=== PATIENT | female | born 1975 | race American Indian/Alaskan Native ===

== ENCOUNTER 2016-12-24 02:27 | Emergency (ER) | payer SELFPAY ==
[2016-12-24 02:37] VITALS: RESP 20
[2016-12-24] MEDS ORDERED: Sodium Chloride 0.9% 1,000 ML IV ONE (02:43)
[2016-12-24] MEDS ORDERED: Sucralfate 1 gm/10 ml Oral Susp UD PO STA (02:44)
[2016-12-24] MEDS ORDERED: Sucralfate 1 gm/10 ml Oral Susp UD ONE (02:54)
[2016-12-24 03:02] LABS: RBC URINE 3 /hpf (0-3); URINE BILIRUBIN NEGATIVE (NEGATIVE); URINE BLOOD NEGATIVE (NEGATIVE); URINE COLOR Yellow (YELLOW); URINE GLUCOSE (UA) NORMAL (Normal); URINE KETONE TRACE mg/dL (NEGATIVE); URINE LEUKOCYTE ESTERASE 1+ Leu/uL (Negative); URINE PROTEIN NEGATIVE (NEGATIVE); URINE UROBILINOGEN NORMAL mg/dL (0.2-1.0); WBC URINE 7 /hpf (0-5)
--- NOTE | 2016-12-24 03:06 | C.PDOC ---
History Of Present Illness 41 year old female presents to the ED with complaints of abdominal pain beginning tonight in the upper quadrants with some episodes of diarrhea. Patient notes similar symptoms previously and denies any dysuria, hematuria, or vomiting. Chief Complaint (Nursing): Abdominal Pain History Per: Patient History/Exam Limitations: no limitations Onset/Duration Of Symptoms: Hrs Current Symptoms Are (Timing): Still Present Location Of Pain/Discomfort: RUQ, Epigastric, LUQ Quality Of Discomfort: "Pain" Associated Symptoms: Diarrhea. denies: Fever, Chills, Nausea, Vomiting, Urinary Symptoms Last Bowel Movement: Today Recent travel outside of the [place]: No Past Medical History Reviewed: Historical Data, Nursing Documentation, Vital Signs Vital Signs: Last Vital Signs Temp 97.7 F 12/24/16 02:34 Pulse 71 12/24/16 02:34 Resp 20 12/24/16 02:34 BP 150/92 H 12/24/16 02:34 Pulse Ox 99 12/24/16 03:06 - Medical History PMH: Fractures (Right Foot) Surgical History: Family History: States: Unknown Family Hx, Diabetes (Mother) - Social History Hx Tobacco Use: Yes Hx Alcohol Use: Yes (Occasional) Hx Substance Use: Yes (Marijuana) - Immunization History Hx Tetanus Toxoid Vaccination: No Hx Influenza Vaccination: No Hx Pneumococcal Vaccination: No Review Of Systems Constitutional: Negative for: Fever, Chills, Sweats Cardiovascular: Negative for: Chest Pain, Palpitations Respiratory: Negative for: Cough, Shortness of Breath Gastrointestinal: Positive for: Abdominal Pain, Diarrhea. Negative for: Nausea , Vomiting Genitourinary: Negative for: Dysuria, Hematuria Physical Exam - Physical Exam Appears: Non-toxic, No Acute Distress Skin: Warm, Dry Head: Atraumatic Oral Mucosa: Moist Neck: Supple Chest: Symmetrical, No Deformity Cardiovascular: Rhythm Regular Respiratory: No Rales, No Rhonchi, No Stridor, No Wheezing Gastrointestinal/Abdominal: Soft, Tenderness (epigastric tenderness), No Distention, No Guarding, No Rebound Extremity: Normal ROM, No Tenderness Neurological/Psych: Oriented x3 ED Course And Treatment - Laboratory Results Result Diagrams: 12/24/16 03:16 12/24/16 03:16 O2 Sat by Pulse Oximetry: 99 (room air ) Disposition Counseled Patient/Family Regarding: Diagnosis - Disposition Referrals: [facility] at [facility] [Outside] Disposition: HOME/ ROUTINE Disposition Time: 04:15 Condition: STABLE Prescriptions: Dicyclomine [Bentyl] 10 mg PO QID #20 cap Famotidine [Pepcid] 20 mg PO BID #20 tab Sucralfate [Carafate] 1 gm PO BID #20 tab Instructions: Gastritis (GEN), Abdominal Pain (ED) - POA Present On Arrival: None - Clinical Impression Clinical Impression: Abdominal pain, Gastritis - Scribe Statement The provider has reviewed the documentation as recorded by the Scribphilipp Leslie All medical record entries made by the Dagoberto were at my direction and personally dictated by me. I have reviewed the chart and agree that the record accurately reflects my personal performance of the history, physical exam, medical decision making, and the department course for this patient. I have also personally directed, reviewed, and agree with the discharge instructions and disposition.
[2016-12-24] MEDS ORDERED: Sodium Chloride 0.9% 1,000 ML ONE (03:25)
[2016-12-24 03:28] LABS: CHLORIDE 106 mmol/L (98-107); SODIUM 142 mmol/L (132-148)
[2016-12-24 03:30] LABS: BILIRUBIN,TOTAL 0.6 mg/dL (0.2-1.3); CARBON DIOXIDE 26 mmol/L (22-30); GFR AFRICAN-AMERICAN > 60
[2016-12-24 03:31] LABS: ALB/GLOB RATIO 1.1 (1.0-2.1); ALKALINE PHOSPHATASE 78 U/L (38-126); ALT/SGPT 16 U/L (9-52); AST/SGOT 28 U/L (14-36); BLOOD UREA NITROGEN 13 mg/dL (7-17); CALCIUM 8.5 mg/dl (8.6-10.4); GLUCOSE,RANDOM 95 mg/dL (65-105); TOTAL PROTEIN 7.1 g/dL (6.3-8.3)
[2016-12-24 03:33] LABS: POTASSIUM 4.2 mmol/L (3.6-5.2)
[2016-12-24 03:47] LABS: BASO # 0.1 K/uL (0.0-0.2); BASO % 1.1 % (0.0-2.0); EOS # 0.3 K/uL (0.0-0.7); EOS % 3.2 % (0.0-4.0); LYMPH # 3.5 K/uL (1.0-4.3); LYMPH % 38.7 % (20.0-40.0); MEAN CORPUSCULAR HEMOGLOBIN 18.4 pg (27.0-31.0); MEAN CORPUSCULAR HGB CONC 29.9 g/dL (33.0-37.0); MEAN PLATELET VOLUME 9.1 fL (7.2-11.7); MONO # 0.6 K/uL (0.0-0.8); MONO % 6.9 % (0.0-10.0); RED CELL DISTRIBUTION WIDTH 19.2 % (11.5-14.5)
[2016-12-24 04:36] VITALS: BP 143/86; PULSE 73; TEMP 98.1; O2SAT 98
[2016-12-24 04:38] LABS: MEAN CELL VOLUME 61.6 fL (81.0-99.0)
== END 2016-12-24 04:36 | disposition home or self-care (01) ==
LOC: C.ER 02:27
DX: K29.70 Gastritis, unspecified, without bleeding (principal)
CPT/HCPCS: 80053; 81001; 83690; 84703; 85025; 87086; 87181; 96374; 99284; J7040

== ENCOUNTER 2017-02-22 23:00 | Emergency (ER) | payer OTHER ==
[2017-02-22 23:21] VITALS: BP 140/85; PULSE 70; RESP 18; TEMP 98.3; O2SAT 99
--- NOTE | 2017-02-22 23:30 | C.PDOC ---
History Of Present Illness Patient c/o right lower toothache for 1 week. She sts she has an appointment with Dentist on 02/25/2017. Patient sts she took Tylenol with Codeine, but pain persists. Time Seen by Provider: 02/22/17 23:27 Chief Complaint (Nursing): Dental Pain History Per: Patient History/Exam Limitations: no limitations Onset/Duration Of Symptoms: Other (1 week) Current Symptoms Are (Timing): Still Present Severity: Severe Pain Scale Rating Of: 8 Quality: Positive for: Aching Past Medical History Reviewed: Historical Data, Nursing Documentation, Vital Signs Vital Signs: Last Vital Signs Temp 98.3 F 02/22/17 23:17 Pulse 70 02/22/17 23:17 Resp 18 02/22/17 23:17 BP 140/85 02/22/17 23:17 Pulse Ox 99 02/22/17 23:55 - Medical History PMH: No Chronic Diseases, Fractures (Right Foot) Denies: HTN Surgical History: Family History: States: Unknown Family Hx, Diabetes (Mother) - Social History Hx Tobacco Use: Yes Hx Alcohol Use: Yes (Occasional) Hx Substance Use: Yes (Marijuana) - Immunization History Hx Tetanus Toxoid Vaccination: No Hx Influenza Vaccination: No Hx Pneumococcal Vaccination: No Review Of Systems Except As Marked, All Systems Reviewed And Found Negative. ENT: Positive for: Other (toothache) Physical Exam - Physical Exam Appears: Well, Non-toxic, No Acute Distress Skin: Normal Color, Warm Head: Atraumatic, Normacephalic Eye(s): bilateral: Normal Inspection Ear(s): Bilateral: Normal Nose: Normal Oral Mucosa: Moist Tongue: Normal Appearing, No Swelling, No Lesions Lips: Normal Appearing, No Swelling, No Lesions Teeth: Other (poor dentition, no dental abscesses) ED Course And Treatment O2 Sat by Pulse Oximetry: 99 Progress Note: Patient was treated with PenVK and Percocet with improvement. Patient was d/c home with Dentist f/u. Disposition - Disposition Referrals: Non [facility] Provider, [Primary Care Provider] - Disposition: HOME/ ROUTINE Disposition Time: 23:54 Condition: GOOD Additional Instructions: Follow up with your PMD and Dentist within 2-3 days. Return to ED if feel worse. Prescriptions: Ibuprofen [Motrin Tab] 600 mg PO Q8 #30 tab Penicillin VK [Penicillin VK Tab] 500 mg PO Q6H #40 tab traMADol [Ultram] 50 mg PO Q6 #30 tab Instructions: Toothache (ED) Forms: [facility] (Maltese), Work Excuse - Clinical Impression Clinical Impression: Toothache
[2017-02-22] MEDS ORDERED: Oxycodone/Acetaminophen 5/325 mg Tab PO STA (23:37)
[2017-02-22] MEDS ORDERED: Oxycodone/Acetaminophen 5/325 mg Tab ONE (23:44)
== END 2017-02-23 00:06 | disposition home or self-care (01) ==
LOC: C.ER 23:00 → SUPCPDRO 23:00 → C.ER 02-23 00:06
DX: K08.89 Other specified disorders of teeth and supporting structures (principal); Z72.0 Tobacco use

== ENCOUNTER 2017-04-21 21:40 | Emergency (ER) | payer OTHER ==
[2017-04-21 21:51] VITALS: BP 145/88; PULSE 76; RESP 20; TEMP 98.4; O2SAT 98
[2017-04-21] MEDS ORDERED: Aluminum Hydroxide/Magnesium Hydroxide Susp (30 mL) ONE (22:30)
[2017-04-21] MEDS ORDERED: Aluminum Hydroxide/Magnesium Hydroxide Susp (30 mL) PO STA (22:39)
--- NOTE | 2017-04-21 22:46 | C.PDOC ---
History Of Present Illness 41 year old female, whose PMHx includes gastritis, presents to the ED for evaluation of epigastric abdominal pain which has been occurring intermittently for the past 2 days. Patient reports experiencing similar episodes of pain for over one year. Patient was evaluated by her PMD for her symptoms and was advised to follow up with a consumer insights intern, but she has yet to do so. Patient denies fever, chills, nausea, vomiting diarrhea, or constipation. Time Seen by Provider: 04/21/17 22:16 Chief Complaint (Nursing): Abdominal Pain History Per: Patient History/Exam Limitations: no limitations Onset/Duration Of Symptoms: Days (2), Intermittent Episodes Current Symptoms Are (Timing): Still Present Location Of Pain/Discomfort: Epigastric Radiation Of Pain To:: None Quality Of Discomfort: "Pain" Associated Symptoms: denies: Fever, Chills, Nausea, Vomiting, Diarrhea Additional History Per: Patient Abnormal Vaginal Bleeding: No Past Medical History Reviewed: Historical Data, Nursing Documentation, Vital Signs Vital Signs: Last Vital Signs Temp 98.4 F 04/21/17 21:47 Pulse 76 04/21/17 21:47 Resp 20 04/21/17 21:47 BP 145/88 04/21/17 21:47 Pulse Ox 98 04/22/17 03:56 - Medical History PMH: Fractures (Right Foot), Gastritis Surgical History: Family History: States: Unknown Family Hx, Diabetes (Mother) - Social History Hx Tobacco Use: Yes Hx Alcohol Use: Yes (Occasional) Hx Substance Use: Yes (Marijuana) - Immunization History Hx Tetanus Toxoid Vaccination: No Hx Influenza Vaccination: No Hx Pneumococcal Vaccination: No Review Of Systems Constitutional: Negative for: Fever, Chills Gastrointestinal: Positive for: Abdominal Pain (epigastric ). Negative for: Nausea, Vomiting, Diarrhea, Constipation Physical Exam - Physical Exam Appears: Non-toxic, Other (patient is sleeping uncomfortably on stretcher) Skin: Normal Color, Warm, Dry Head: Atraumatic, Normacephalic Eye(s): bilateral: Normal Inspection Oral Mucosa: Moist Neck: Supple Chest: Symmetrical, No Deformity, No Tenderness Cardiovascular: Rhythm Regular, No Murmur Respiratory: Normal Breath Sounds, No Rales, No Rhonchi, No Wheezing Gastrointestinal/Abdominal: Soft, Tenderness (mild, epigastric ), No Guarding, No Rebound, Other (obese ) Extremity: Normal ROM, Capillary Refill (less than 2 seconds ) Neurological/Psych: Oriented x3, Normal Speech, Normal Cognition Gait: Steady ED Course And Treatment O2 Sat by Pulse Oximetry: 98 (on RA) Pulse Ox Interpretation: Normal Progress Note: Lidocaine 2% PO, Maalox PO, and Pepcid PO administered. On reassessment, patient is resting comfortably, showing no signs of distress, and reports an improvement in her abdominal pain. Patient is tolerating PO intake and is stable for discharge. Patient is advised to follow up with her PMD and consumer insights intern within 1-2 days for further evaluation. Reassessment Condition: Improved Disposition Counseled Patient/Family Regarding: Diagnosis, Need For Followup, Rx Given - Disposition Disposition: HOME/ ROUTINE Disposition Time: 22:43 Condition: STABLE Additional Instructions: Please follow up with PMD Take meds as directed Avoid greasy/ fried meat foods, spicy food, caffeine, red meat Return to ER if worse Prescriptions: Aluminum Hydroxide/Magnesium H [Maalox 30 ml] 30 ml PO BID #100 ml Famotidine [Pepcid] 20 mg PO DAILY #20 tab Instructions: Gastritis (ED) Forms: [employer] (Portuguese), Work Excuse - Clinical Impression Clinical Impression: Gastritis - PA / [employer] / Resident Statement MD/DO has reviewed & agrees with the documentation as recorded. - Scribe Statement The provider has reviewed the documentation as recorded by the Scribe (Tasha New) All medical record entries made by the Scribe were at my direction and personally dictated by me. I have reviewed the chart and agree that the record accurately reflects my personal performance of the history, physical exam, medical decision making, and the department course for this patient. I have also personally directed, reviewed, and agree with the discharge instructions and disposition.
== END 2017-04-21 22:55 | disposition home or self-care (01) ==
LOC: C.ER 21:40
DX: K29.70 Gastritis, unspecified, without bleeding (principal)

== ENCOUNTER 2017-06-10 01:52 | Emergency (ER) | payer OTHER ==
[2017-06-10 02:10] VITALS: RESP 20; O2SAT 100
[2017-06-10] MEDS ORDERED: Naproxen 550 mg Tab PO STA (02:22)
[2017-06-10] MEDS ORDERED: Naproxen 550 mg Tab PO ONE (02:30)
[2017-06-10 03:04] LABS: RBC URINE 1 /hpf (0-3); URINE BILIRUBIN NEGATIVE (NEGATIVE); URINE BLOOD NEGATIVE (NEGATIVE); URINE COLOR Yellow (YELLOW); URINE GLUCOSE (UA) NORMAL (Normal); URINE KETONE NEGATIVE (NEGATIVE); URINE LEUKOCYTE ESTERASE 3+ Leu/uL (Negative); URINE PROTEIN NEGATIVE (NEGATIVE); URINE UROBILINOGEN NORMAL mg/dL (0.2-1.0); WBC URINE 12 /hpf (0-5)
--- NOTE | 2017-06-10 03:43 | C.PDOC ---
History Of Present Illness 41 year old female, whose PMHx includes chronic back pain and sciatica, presents to the ED for evaluation of right upper back pain which began 3 days ago. Patient reports her pain radiates to her right lower extremity and is exacerbated by movement. She was evaluated at [facility] 3 days ago and was discharged without any prescriptions. Patient took Tramadol at home without significant relief. She denies fever, chills, urinary/bowel incontinence , extremity numbness/weakness, or recent trauma. Time Seen by Provider: 06/10/17 02:12 Chief Complaint (Nursing): Back Pain History Per: Patient History/Exam Limitations: no limitations Onset/Duration Of Symptoms: Days (3) Current Symptoms Are (Timing): Still Present Quality Of Discomfort: "Pain" Previous Symptoms: Back Pain Associated Symptoms: denies: Incontinence, New Weakness, New Numbness Exacerbating Factor(s): Movement Additional History Per: Patient Past Medical History Reviewed: Historical Data, Nursing Documentation, Vital Signs Vital Signs: Last Vital Signs Temp 98.2 F 06/10/17 04:01 Pulse 82 06/10/17 04:01 Resp 20 06/10/17 04:01 BP 132/76 06/10/17 04:01 Pulse Ox 100 06/10/17 04:57 - Medical History PMH: No Chronic Diseases, Fractures (Right Foot), Gastritis Denies: HTN Surgical History: Family History: States: Diabetes (Mother) - Social History Hx Tobacco Use: Yes Hx Alcohol Use: Yes (Occasional) Hx Substance Use: Yes (Marijuana) - Immunization History Hx Tetanus Toxoid Vaccination: No Hx Influenza Vaccination: No Hx Pneumococcal Vaccination: No Review Of Systems Constitutional: Negative for: Fever, Chills Genitourinary: Negative for: Incontinence Musculoskeletal: Positive for: Back Pain (right upper ), Leg Pain (right ) Neurological: Negative for: Weakness, Numbness Physical Exam - Physical Exam Appears: Non-toxic, No Acute Distress, Other (morbidly obese ) Skin: Normal Color, Warm, Dry Eye(s): bilateral: Normal Inspection, PERRL Neck: Supple Chest: Symmetrical, No Deformity, No Tenderness Cardiovascular: Rhythm Regular, No Murmur Respiratory: Normal Breath Sounds, No Rales, No Rhonchi, No Wheezing Gastrointestinal/Abdominal: Soft, No Tenderness, No Guarding, No Rebound Back: CVA Tenderness (right), No Decreased ROM, Straight Leg Raising (positive at 40 degrees), Other (tenderness to right mid-back and right lumbar region ) Extremity: Normal ROM, Capillary Refill (less than 2 seconds ) Neurological/Psych: Oriented x3, Normal Speech, Normal Cognition, Normal Sensation Gait: Steady ED Course And Treatment O2 Sat by Pulse Oximetry: 100 (on RA) Pulse Ox Interpretation: Normal Progress Note: UA ordered and reviewed. Naproxen PO and Valium PO administered. On reassessment, patient is resting comfortably, showing no signs of distress and reports an improvement in her symptoms. Patient is ambulatory in the ED without distress and is stable for discharge. Patient is advised to f/u with her PMD within 1-2 days for further evaluation and/or return to the ED if symptoms persist or worsen. Reassessment Condition: Improved Disposition Counseled Patient/Family Regarding: Diagnosis, Need For Followup, Rx Given - Disposition Disposition: HOME/ ROUTINE Disposition Time: 03:38 Condition: STABLE Additional Instructions: TAke meds as directed Follow up with PMD Return to ER if worse Prescriptions: Cyclobenzaprine [Cyclobenzaprine HCl] 10 mg PO BID #10 tab Naproxen [Naprosyn] 1 tab PO BID PRN #20 tab PRN Reason: Pain Nitrofurantoin Macrocrystals [Macrobid] 1 cap PO BID #14 cap Instructions: Urinary Tract Infection in Women (ED) Forms: [facility] (Brazilian), Work Excuse - Clinical Impression Clinical Impression: UTI (urinary tract infection) - PA / [employer] / Resident Statement MD/DO has reviewed & agrees with the documentation as recorded. - Scribe Statement The provider has reviewed the documentation as recorded by the Scribe (Tasha New) All medical record entries made by the Scribe were at my direction and personally dictated by me. I have reviewed the chart and agree that the record accurately reflects my personal performance of the history, physical exam, medical decision making, and the department course for this patient. I have also personally directed, reviewed, and agree with the discharge instructions and disposition.
[2017-06-10 04:03] VITALS: BP 132/76; PULSE 82; TEMP 98.2
== END 2017-06-10 04:03 | disposition home or self-care (01) ==
LOC: C.ER 01:52
DX: N39.0 Urinary tract infection, site not specified (principal)

== ENCOUNTER 2017-07-20 20:52 | Emergency (ER) | payer OTHER ==
[2017-07-20 21:00] VITALS: BP 157/91; PULSE 73; RESP 18; TEMP 98.2; O2SAT 98
--- NOTE | 2017-07-20 22:35 | C.PDOC ---
History Of Present Illness 41 year old female presents to the ED for evaluation of right arm and right thigh pain which began after she slipped off some stairs at work earlier today. Patient denies head injury, LOC, extremity numbness/weakness. Time Seen by Provider: 07/20/17 21:09 Chief Complaint (Nursing): Upper Extremity Problem/Injury History Per: Patient History/Exam Limitations: no limitations Onset/Duration Of Symptoms: Hrs Current Symptoms Are (Timing): Still Present Quality: "Pain" Additional History Per: Patient Past Medical History Reviewed: Historical Data, Nursing Documentation, Vital Signs Vital Signs: Last Vital Signs Temp 98.2 F 07/20/17 20:59 Pulse 73 07/20/17 20:59 Resp 18 07/20/17 20:59 BP 157/91 H 07/20/17 20:59 Pulse Ox 98 07/21/17 05:02 - Medical History PMH: Fractures (Right Foot), Gastritis Denies: HTN Surgical History: Family History: States: Diabetes (Mother) - Social History Hx Tobacco Use: Yes Hx Alcohol Use: Yes (Occasional) Hx Substance Use: Yes (Marijuana) - Immunization History Hx Tetanus Toxoid Vaccination: No Hx Influenza Vaccination: No Hx Pneumococcal Vaccination: No Review Of Systems Musculoskeletal: Positive for: Arm Pain (right), Other (right thigh pain ) Neurological: Negative for: Weakness, Numbness, Other (head injury, LOC ) Physical Exam - Physical Exam Appears: Non-toxic, No Acute Distress Skin: Normal Color, Warm, Dry, No Ecchymosis Extremity: No Normal ROM (limited in right wrist, secondary to pain ), Tenderness (right wrist and right thigh ), Capillary Refill (less than 2 seconds ), Other (no tenderness to right shoulder, right elbow, and right hip with full ROM. ) Neurological/Psych: Oriented x3, Normal Speech, Normal Cognition Gait: Steady ED Course And Treatment O2 Sat by Pulse Oximetry: 98 (on RA) Pulse Ox Interpretation: Normal Progress Note: Right hand and right wrsit XR ordered and reviewed. Motrin PO administered. On reassessment, patient is resting comfortably, showing no signs of distress and reports an improvement in her symptoms. Patient is stable for discharge and is advised to follow up with PMD within 1-2 days for further evaluation. Disposition Counseled Patient/Family Regarding: Diagnosis, Need For Followup, Rx Given - Disposition Referrals: Diamante Richards MD [Medical Doctor] - Disposition: HOME/ ROUTINE Disposition Time: 22:32 Condition: STABLE Additional Instructions: Apply ICE to area Take meds as directed follow up with pmd Return to ER if worse Prescriptions: Ibuprofen [Motrin] 600 mg PO Q6H #20 tab Instructions: Wrist Injury (ED), Contusion in Adults (ED) Forms: [email or web address] [facility] (Luxembourgish), Work Excuse - Clinical Impression Clinical Impression: Contusion of right thigh, Injury of right lower arm - PA / [employer] / Resident Statement MD/DO has reviewed & agrees with the documentation as recorded. - Scribe Statement The provider has reviewed the documentation as recorded by the Scribe (Tasha eNw) All medical record entries made by the Scribe were at my direction and personally dictated by me. I have reviewed the chart and agree that the record accurately reflects my personal performance of the history, physical exam, medical decision making, and the department course for this patient. I have also personally directed, reviewed, and agree with the discharge instructions and disposition.
--- NOTE | 2017-07-21 09:13 | RAD ---
PROCEDURE: Right Hand Radiographs. HISTORY: pain, fall COMPARISON: None. FINDINGS: BONES: No acute fracture or destructive bony lesion identified. JOINTS: Normal. No osteoarthritic changes. SOFT TISSUES: Normal. OTHER FINDINGS: None. IMPRESSION: Unremarkable right hand radiographs.
--- NOTE | 2017-07-21 09:14 | RAD ---
PROCEDURE: Right Wrist Radiographs. HISTORY: fall, pain COMPARISON: None. FINDINGS: BONES: No acute fracture or destructive bony lesion identified. JOINTS: Normal. No dislocation. SOFT TISSUES: Normal. OTHER FINDINGS: None. IMPRESSION: Unremarkable right wrist radiographs.
== END 2017-07-20 22:56 | disposition home or self-care (01) ==
LOC: C.ER 20:52
DX: S70.11XA Contusion of right thigh, initial encounter (principal); S59.911A Unspecified injury of right forearm, initial encounter; W10.9XXA Fall (on) (from) unspecified stairs and steps, initial encounter; Y99.0 Civilian activity done for income or pay; Z87.891 Personal history of nicotine dependence

== ENCOUNTER 2017-11-02 04:01 | Emergency (ER) | payer OTHER ==
[2017-11-02 04:16] VITALS: RESP 20
--- NOTE | 2017-11-02 04:19 | C.PDOC ---
History Of Present Illness pt presents with increased frequency , dysuria since yesterday. No f/c/n/v. tolerating po. States that her menstruation came in early. Time Seen by Provider: 11/02/17 04:19 Chief Complaint (Nursing): Abdominal Pain History Per: Patient History/Exam Limitations: no limitations Onset/Duration Of Symptoms: Days Current Symptoms Are (Timing): Still Present Context: Other Severity: Moderate Pain Scale Rating Of: 4 Location Of Pain/Discomfort: Suprapubic Radiation Of Pain To:: None Quality Of Discomfort: Burning Associated Symptoms: denies: Fever, Chills Exacerbating Factors: None Alleviating Factors: None Last Bowel Movement: Today Recent travel outside of the [place]: No Additional History Per: Patient Abnormal Vaginal Bleeding: No Past Medical History Reviewed: Historical Data, Nursing Documentation, Vital Signs Vital Signs: Last Vital Signs Temp 98.2 F 11/02/17 04:11 Pulse 83 11/02/17 04:11 Resp 20 11/02/17 04:11 BP 148/89 11/02/17 04:11 Pulse Ox 100 11/02/17 04:19 - Medical History PMH: Fractures (Right Foot), Gastritis, HTN Surgical History: Family History: States: Diabetes (Mother) - Social History Hx Tobacco Use: Yes Hx Alcohol Use: Yes (Occasional) Hx Substance Use: Yes (Marijuana) - Immunization History Hx Tetanus Toxoid Vaccination: No Hx Influenza Vaccination: No Hx Pneumococcal Vaccination: No Review Of Systems Constitutional: Negative for: Fever, Chills Genitourinary: Positive for: Dysuria, Frequency. Negative for: Hematuria Musculoskeletal: Negative for: Back Pain Skin: Negative for: Rash Neurological: Negative for: Weakness Psych: Negative for: Anxiety Physical Exam - Physical Exam Appears: Non-toxic Skin: Warm, Dry Chest: Symmetrical Cardiovascular: Rhythm Regular Respiratory: No Rales, No Rhonchi, No Wheezing Gastrointestinal/Abdominal: Soft, Tenderness (suprapubic) Back: Normal Inspection Extremity: Normal ROM Extremity: Bilateral: Atraumatic Pulses: Left Dorsalis Pedis: Normal, Right Dorsalis Pedis: Normal Neurological/Psych: Oriented x3 Gait: Steady ED Course And Treatment O2 Sat by Pulse Oximetry: 100 Pulse Ox Interpretation: Normal Reevaluation Time: 05:05 Reassessment Condition: Improved Disposition Counseled Patient/Family Regarding: Studies Performed, Diagnosis, Need For Followup, Rx Given - Disposition Referrals: [facility] [Outside] [facility] [Outside] Disposition: HOME/ ROUTINE Disposition Time: 04:19 Condition: FAIR Additional Instructions: Please return if symptoms recur Prescriptions: Nitrofurantoin Macrocrystals [Macrobid] 1 cap PO BID #14 cap Ondansetron ODT [Zofran ODT] 1 odt PO BID PRN #6 odt PRN Reason: Nausea/Vomiting Phenazopyridine [Phenazopyridine HCl] 200 mg PO TID #6 tab Instructions: Urinary Tract Infection, Adult (DC) Forms: [facility] (Yi), Work Excuse - Clinical Impression Clinical Impression: UTI (urinary tract infection)
[2017-11-02 04:53] LABS: SQUAMOUS EPITHIAL 24 /hpf (0-5); URINE BACTERIA RARE (<OCC); URINE BILIRUBIN NEGATIVE (NEGATIVE); URINE BLOOD 3+ (NEGATIVE); URINE CLARITY Hazy (Clear); URINE COLOR Red (YELLOW); URINE GLUCOSE (UA) NORMAL (Normal); URINE LEUKOCYTE ESTERASE 3+ Leu/uL (Negative); URINE PROTEIN 2+ mg/dL (NEGATIVE); URINE UROBILINOGEN NORMAL mg/dL (0.2-1.0)
[2017-11-02 04:55] LABS: HCG,QUALITATIVE URINE NEGATIVE (NEGATIVE)
[2017-11-02 05:17] VITALS: BP 149/89; PULSE 88; TEMP 98; O2SAT 99
== END 2017-11-02 05:17 | disposition home or self-care (01) ==
LOC: C.ER 04:01
DX: N39.0 Urinary tract infection, site not specified (principal)

== ENCOUNTER 2017-11-24 22:33 | Emergency (ER) | payer OTHER ==
[2017-11-24 22:43] VITALS: RESP 18; O2SAT 98
[2017-11-24] MEDS ORDERED: Aspirin 325 mg EC Tablets PO STA (23:07)
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
[2017-11-24 23:47] LABS: BASO # 0.1 K/uL (0.0-0.2); BASO % 0.8 % (0.0-2.0); EOS # 0.2 K/uL (0.0-0.7); EOS % 2.2 % (0.0-4.0); HEMOGLOBIN 9.7 g/dL (11.0-16.0); LYMPH # 3.2 K/uL (1.0-4.3); LYMPH % 35.2 % (20.0-40.0); MEAN CELL VOLUME 60.2 fL (81.0-99.0); MEAN CORPUSCULAR HEMOGLOBIN 18.6 pg (27.0-31.0); MEAN CORPUSCULAR HGB CONC 30.9 g/dL (33.0-37.0); MEAN PLATELET VOLUME 9.3 fL (7.2-11.7); MONO # 0.6 K/uL (0.0-0.8); MONO % 6.4 % (0.0-10.0); NEUT % 55.4 % (50.0-75.0); NRBC % 0.1 % (0.0-2.0); RBC 5.2 Mil/uL (3.80-5.20); RED CELL DISTRIBUTION WIDTH 19.4 % (11.5-14.5)
[2017-11-24] MEDS ORDERED: Aspirin 325 mg EC Tablets PO ONE (23:51)
[2017-11-25 00:02] LABS: ALB/GLOB RATIO 1.2 (1.0-2.1); ALBUMIN 4.2 g/dL (3.5-5.0); ALT/SGPT 20 U/L (9-52); AST/SGOT 20 U/L (14-36); BLOOD UREA NITROGEN 11 mg/dL (7-17); CALCIUM 9.4 mg/dl (8.6-10.4); GFR AFRICAN-AMERICAN > 60; GFR NON-AFRICAN AMERICAN > 60; LIPASE 152 U/L (23-300)
[2017-11-25 00:59] VITALS: BP 151/78; PULSE 70; TEMP 98.7
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
--- NOTE | 2017-11-25 13:57 | CARD ---
APPROVED REPORT EKG Measurement Heart [id number] ID [id number] <Conclusion> Normal sinus rhythm Nonspecific T wave abnormality Abnormal ECG
== END 2017-11-25 00:59 | disposition home or self-care (01) ==
LOC: C.ER 22:33
DX: R07.89 Other chest pain (principal); I10 Essential (primary) hypertension; Z72.0 Tobacco use
CPT/HCPCS: 71046; 80053; 83690; 84484; 85025; 93005; 96374; 99284; C9113

== ENCOUNTER 2018-09-08 05:58 | Emergency (ER) | payer OTHER | END 2018-09-08 09:18 | disposition home or self-care (01) | LOC: C.ER 05:58 ==

== ENCOUNTER 2018-10-06 03:02 | Inpatient (IN) | payer OTHER ==
[2018-10-06 03:02] VITALS: BMI 42.3
[2018-10-06 04:40] LABS: SQUAMOUS EPITHIAL 5 /hpf (0-5); URINE BILIRUBIN 2+ (NEGATIVE); URINE BLOOD NEGATIVE (NEGATIVE); URINE CLARITY Hazy (Clear); URINE COLOR Amber (YELLOW); URINE GLUCOSE (UA) NORMAL (Normal); URINE LEUKOCYTE ESTERASE TRACE Leu/uL (Negative); URINE PROTEIN NEGATIVE (NEGATIVE)
[2018-10-06 05:07] LABS: BASO # 0.1 K/uL (0.0-0.2); BASO % 0.8 % (0.0-2.0); EOS # 0.2 K/uL (0.0-0.7); EOS % 2.4 % (0.0-4.0); HEMOGLOBIN 10.5 g/dL (11.0-16.0); LYMPH # 2.7 K/uL (1.0-4.3); LYMPH % 35.5 % (20.0-40.0); MEAN CELL VOLUME 62.4 fL (81.0-99.0); MEAN CORPUSCULAR HEMOGLOBIN 19.4 pg (27.0-31.0); MEAN PLATELET VOLUME 9.1 fL (7.2-11.7); MONO # 1.3 K/uL (0.0-0.8); MONO % 17.1 % (0.0-10.0); NEUT # 3.4 K/uL (1.8-7.0); NEUT % 44.2 % (50.0-75.0); RBC 5.44 Mil/uL (3.80-5.20); RED CELL DISTRIBUTION WIDTH 19.9 % (11.5-14.5); WHITE BLOOD COUNT 7.7 K/uL (4.8-10.8)
[2018-10-06 05:33] LABS: ALB/GLOB RATIO 1.1 (1.0-2.1); BLOOD UREA NITROGEN 9 mg/dL (7-17); CALCIUM 8.9 mg/dl (8.6-10.4); GFR NON-AFRICAN AMERICAN > 60; LIPASE 198 U/L (23-300)
--- NOTE | 2018-10-06 05:55 | C.PDOC ---
History Of Present Illness 42-year-old female presents to the ED for evaluation of dark urine noted over the past 4 days. Patient also reports periumbilical abdominal pain, which she describes as gas-like. Patient states she normally has two bowel movements per day, but has only been having one bowel movement per day over the past 2-3 days. Patient reports decreased appetite, but states she was able to eat today. Patient denies fever, chills, vomiting. Time Seen by Provider: 10/06/18 03:32 Chief Complaint (Nursing): Abdominal Pain History Per: Patient History/Exam Limitations: no limitations Onset/Duration Of Symptoms: Days (4) Current Symptoms Are (Timing): Still Present Location Of Pain/Discomfort: Periumbilical Radiation Of Pain To:: None Quality Of Discomfort: "Pain", Gas Associated Symptoms: Urinary Symptoms (dark urine ). denies: Fever, Chills, Vomiting Additional History Per: Patient Past Medical History Reviewed: Historical Data, Nursing Documentation, Vital Signs Vital Signs: Last Vital Signs Temp 98.2 F 10/06/18 03:21 Pulse 69 10/06/18 03:21 Resp 20 10/06/18 03:21 BP Pulse Ox 98 10/06/18 03:21 - Medical History PMH: Fractures (Right Foot), Gastritis, HTN Denies: Chronic Kidney Disease Surgical History: Family History: States: Diabetes (Mother) - Social History Hx Tobacco Use: Yes Hx Alcohol Use: Yes (Occasional) Hx Substance Use: Yes (Marijuana) - Immunization History Hx Tetanus Toxoid Vaccination: No Hx Influenza Vaccination: No Hx Pneumococcal Vaccination: No Review Of Systems Constitutional: Negative for: Fever, Chills, Weakness Cardiovascular: Negative for: Chest Pain, Palpitations Respiratory: Negative for: Cough, Shortness of Breath Gastrointestinal: Positive for: Abdominal Pain (periumbilical ). Negative for: Nausea, Vomiting, Diarrhea Genitourinary: Negative for: Dysuria, Hematuria Musculoskeletal: Positive for: Other (dark urine ). Negative for: Back Pain Skin: Negative for: Rash Neurological: Negative for: Weakness, Numbness, Dizziness Physical Exam - Physical Exam Appears: Well, Non-toxic, No Acute Distress Skin: Warm, Pale Head: Atraumatic, Normacephalic Eye(s): bilateral: PERRL, EOMI, Scleral Icterus Oral Mucosa: Moist Throat: Normal (no swelling or injection ), No Exudate, Other (airway patent ) Neck: Supple Chest: Symmetrical Respiratory: No Accessory Muscle Use, Other (normal inspiratory effoty ) Gastrointestinal/Abdominal: Soft, Tenderness (periumbilical ), No Guarding, No Rebound Back: No CVA Tenderness, Other (ambulatory with steady upright gait ) Extremity: Normal ROM Extremity: Bilateral: Atraumatic Neurological/Psych: Oriented x3, Normal Cranial Nerves (grossly intact ) ED Course And Treatment - Laboratory Results Result Diagrams: 10/06/18 05:03 10/06/18 05:03 Lab Results: Total Bilirubin 5.1 mg/dL (0.2-1.3) H 10/06/18 05:03 Alkaline Phosphatase 201 U/L (38-126) H D 10/06/18 05:03 Total Protein 7.7 g/dL (6.3-8.3) 10/06/18 05:03 Albumin 4.0 g/dL (3.5-5.0) 10/06/18 05:03 Globulin 3.7 gm/dL (2.2-3.9) 10/06/18 05:03 Albumin/Globulin Ratio 1.1 (1.0-2.1) 10/06/18 05:03 Lipase 198 U/L (23-300) 10/06/18 05:03 Urine Color Jessica (YELLOW) 10/06/18 04:27 Urine Clarity Hazy (Clear) 10/06/18 04:27 Urine pH 5.0 (5.0-8.0) 10/06/18 04:27 Ur Specific [place] 1.021 (1.003-1.030) 10/06/18 04:27 Urine Protein Negative mg/dL (NEGATIVE) 10/06/18 04:27 Urine Glucose (UA) Normal mg/dL (Normal) 10/06/18 04:27 Urine Ketones Negative mg/dL (NEGATIVE) 10/06/18 04:27 Urine Blood Negative (NEGATIVE) 10/06/18 04:27 Urine Nitrate Negative (NEGATIVE) 10/06/18 04:27 Urine Bilirubin 2+ (NEGATIVE) H 10/06/18 04:27 Urine Urobilinogen 4.0 mg/dL (0.2-1.0) H 10/06/18 04:27 Ur Leukocyte Esterase Trace Dimitrios/uL (Negative) 10/06/18 04:27 Urine WBC (Auto) 10 /hpf (0-5) H 10/06/18 04:27 Urine RBC (Auto) 4 /hpf (0-3) H 10/06/18 04:27 Ur Squamous Epith Cells 5 /hpf (0-5) 10/06/18 04:27 O2 Sat by Pulse Oximetry: 98 (on RA ) Pulse Ox Interpretation: Normal Medical Decision Making Medical Decision Making: Progress: Patient is declining all bloodwork, stating she only wants her urine to be checked. Urinalysis ordered and reviewed. Abdomen XR ordered. Urinalysis results show remarkable bilirubin. Patient advised to undergo bloodwork and agreed to the test. Bloodwork ordered and reviewed, results show elevated liver enzymes. 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 - Scribe Statement The provider has reviewed the documentation as recorded by the Scribe (Tasha New) All medical record entries made by the Scribe were at my direction and personally dictated by me. I have reviewed the chart and agree that the record accurately reflects my personal performance of the history, physical exam, medical decision making, and the department course for this patient. I have also personally directed, reviewed, and agree with the discharge instructions and disposition. Physician Patient Turnover Patient Signed Over To: Jessica Kinney (pending US results)
[2018-10-06 06:23] LABS: ALT/SGPT 1328 U/L (9-52); AST/SGOT 1333 U/L (14-36)
--- NOTE | 2018-10-06 07:50 | US ---
Date of service: 10/06/2018 HISTORY: gall bladder disease COMPARISON: 04/12/2015 TECHNIQUE: Sonographic evaluation of the right upper quadrant of the abdomen. FINDINGS: LIVER: Measures 17.4 cm in length. Normal echogenicity of the liver parenchyma. No mass. No intrahepatic bile duct dilatation. GALLBLADDER: Gallbladder is contracted pre occluding gallbladder wall thickening true status. For this exam gallbladder wall thickness is 4 mm. No stones seen. COMMON BILE DUCT: Measures 3.7 mm. No stones. No dilatation. PANCREAS: Unremarkable as visualized. No mass. No ductal dilatation. RIGHT KIDNEY: Measures 11.9 x 4.6 x 5.3 cm in length. Normal echogenicity. No calculus, mass, or hydronephrosis. AORTA: No aneurysmal dilatation. IVC: Unremarkable. OTHER FINDINGS: None . IMPRESSION: Limited exam regarding gallbladder wall thickness as gallbladder is contracted. No gallstones seen. No positive ultrasound Coreas sign elicited. No pericholecystic fluid. Otherwise unremarkable exam
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
[2018-10-06 08:50] LABS: HEPATITIS A IGM NEGATIVE (NEGATIVE)
[2018-10-06 09:02] LABS: HEPATITIS C ANTIBODY NEGATIVE (NEGATIVE)
[2018-10-06 10:42] LABS: HEPATITIS B SURFACE AG Reactive (NEGATIVE)
[2018-10-06 10:43] LABS: HEPATITIS B CORE AB REACTIVE (NEGATIVE)
--- NOTE | 2018-10-06 11:45 | CP.PCM.CON ---
<MalakristentobiPeter - Last Filed: 10/06/18 17:14> History of Present Illness - History of Present Illness History of Present Illness: GI Fellow PGY4, consult note. Rylee Mcclain is a 42F presenting with abdominal discomfort, dark urine and yellow eyes. Patient has been having these symptoms for 1-2 weeks. The abdominal pain is RUQ, mild-moderate, dull to sharp and constant. The urine is dark yellow to orange. She has tried to drink more liquids, but it is not helping. She denies taking tylenol/NSAID, any liver disease history, excessive alcohol intake, new medications Rx or OTC. She does admit to having a new sexual encounter 3-4 weeks ago. She states she used protection with condoms. She has several tattoos, the last one was more than 6 months ago and states she always uses clean needles. She denies any IV drug use. ED workup showed severely high liver enzymes ~1300. One month prior she was here for chest pain, and her liver tests were normal. Hepatitis panel was ordered and showed acute hepatitis B. She also has chronic anemia. She denies heavy menses, blood in stool and she does not take iron. She admits to constantly chewing ice or pica. She denies being told if she had thalassemia. PMHx - none PSHx - FMHx - denies GI related cancers or hepatitis SocHx - Current 1/2 PPD smoke since teenager. Occasional alcohol user. Denies IV drugs. 12pt ROS completed and negative except for above. Past Patient History - Infectious Disease Hx of Infectious Diseases: None - Past Social History Smoking Status: Heavy Smoker > 10 Cigarettes Daily - CARDIAC Hx Hypertension: Yes - PULMONARY Hx Respiratory Disorders: No - NEUROLOGICAL Hx Neurological Disorder: No - HEENT Hx HEENT Problems: No - RENAL Hx Chronic Kidney Disease: No - ENDOCRINE/METABOLIC Hx Endocrine Disorders: No - HEMATOLOGICAL/ONCOLOGICAL Hx Blood Disorders: No - INTEGUMENTARY Hx Dermatological Problems: No - MUSCULOSKELETAL/RHEUMATOLOGICAL Hx Fractures: Yes (Right Foot) - GASTROINTESTINAL Hx Gastritis: Yes - GENITOURINARY/GYNECOLOGICAL Hx Genitourinary Disorders: No - PSYCHIATRIC Hx Substance Use: Yes (Marijuana) - SURGICAL HISTORY Hx Surgeries: Yes Hx Section: Yes - ANESTHESIA Hx Anesthesia: Yes Hx Anesthesia Reactions: No Meds Allergies/Adverse Reactions: Allergies Allergy/AdvReac Type Severity Reaction Status Date / Time No Known Allergies Allergy Verified 10/06/18 03:26 Physical Exam - Constitutional Appears: Non-toxic, No Acute Distress - Head Exam Head Exam: ATRAUMATIC, NORMAL INSPECTION - Eye Exam Eye Exam: EOMI, Scleral icterus - Respiratory Exam Respiratory Exam: Clear to Auscultation Bilateral, NORMAL BREATHING PATTERN - Cardiovascular Exam Cardiovascular Exam: REGULAR RHYTHM, +S1, +S2 - GI/Abdominal Exam GI & Abdominal Exam: Normal Bowel Sounds, Soft. absent: Organomegaly, Tenderness Additional comments: obese - Extremities Exam Extremities exam: Positive for: normal inspection. Negative for: pedal edema - Neurological Exam Neurological exam: Alert, CN II-XII Intact, Oriented x3 - Psychiatric Exam Psychiatric exam: Normal Affect, Normal Mood - Skin Skin Exam: Dry, Warm Results - Vital Signs Recent Vital Signs: Last Vital Signs Temp 99.0 F 10/06/18 10:01 Pulse 67 10/06/18 10:01 Resp 20 10/06/18 06:25 BP 130/76 10/06/18 10:01 Pulse Ox 100 10/06/18 10:01 - Labs Result Diagrams: 10/06/18 05:03 10/06/18 05:03 Labs: Laboratory Results - last 24 hr 10/06/18 10/06/18 10/06/18 04:27 05:03 05:03 WBC 7.7 RBC 5.44 H Hgb 10.5 L Hct 34.0 MCV 62.4 L MCH 19.4 L MCHC 31.0 L RDW 19.9 H Plt Count 263 MPV 9.1 Neut % (Auto) 44.2 L Lymph % (Auto) 35.5 [place] % (Auto) 17.1 H Eos % (Auto) 2.4 Baso % (Auto) 0.8 Neut # (Auto) 3.4 Lymph # (Auto) 2.7 [place] # (Auto) 1.3 H Eos # (Auto) 0.2 Baso # (Auto) 0.1 Sodium 138 Potassium 3.9 Chloride 104 Carbon Dioxide 27 Anion Gap 10 BUN 9 Creatinine 0.8 Est GFR ( Amer) > 60 Est GFR (Non-Af Amer) > 60 Random Glucose 117 H D Calcium 8.9 Total Bilirubin 5.1 H AST 1333 H ALT 1328 H Alkaline Phosphatase 201 H D Total Protein 7.7 Albumin 4.0 Globulin 3.7 Albumin/Globulin Ratio 1.1 Lipase 198 Urine Color Jessica Urine Clarity Hazy Urine pH 5.0 Ur Specific [place] 1.021 Urine Protein Negative Urine Glucose (UA) Normal Urine Ketones Negative Urine Blood Negative Urine Nitrate Negative Urine Bilirubin 2+ H Urine Urobilinogen 4.0 H Ur Leukocyte Esterase Trace Urine WBC (Auto) 10 H Urine RBC (Auto) 4 H Ur Squamous Epith Cells 5 Hepatitis A IgM Ab Hep Bs Antigen Hep Bs Ag Neutralizatn Hep B Core IgM Ab Hepatitis C Antibody 10/06/18 10/06/18 07:46 07:46 WBC RBC Hgb Hct MCV MCH MCHC RDW Plt Count MPV Neut % (Auto) Lymph % (Auto) [place] % (Auto) Eos % (Auto) Baso % (Auto) Neut # (Auto) Lymph # (Auto) [place] # (Auto) Eos # (Auto) Baso # (Auto) Sodium Potassium Chloride Carbon Dioxide Anion Gap BUN Creatinine Est GFR ( Amer) Est GFR (Non-Af Amer) Random Glucose Calcium Total Bilirubin AST ALT Alkaline Phosphatase Total Protein Albumin Globulin Albumin/Globulin Ratio Lipase Urine Color Urine Clarity Urine pH Ur Specific [place] Urine Protein Urine Glucose (UA) Urine Ketones Urine Blood Urine Nitrate Urine Bilirubin Urine Urobilinogen Ur Leukocyte Esterase Urine WBC (Auto) Urine RBC (Auto) Ur Squamous Epith Cells Hepatitis A IgM Ab Negative Hep Bs Antigen Reactive Hep Bs Ag Neutralizatn Confirmed positive H Hep B Core IgM Ab Reactive Hepatitis C Antibody Negative Assessment & Plan - Assessment and Plan (Free Text) Assessment: #Acute hepatitis B #Abnormal liver tests #Chronic anemia #Obesity #Tobacco dependence PLAN: -Elevated liver enzymes (hepatocellular pattern) due to acute hep B, and possible source from recent new sexual encounter. -Chronic anemia is possible iron deficiency with symptoms of pica. However, differential includes thalassemia (elevated RBCs). -U/S reviewed, unremarkable. CBD 3.7mm, no stones observed. -Order hepatitis D labs, Hep B e Ag, viral load -Duplex US -Order iron workup, d. bili, LDH -May benefit from hematology consult if anemia workup is equivocal. -She will likely need endoscopic evaluation for her anemia however this is not emergent. Case discussed with Dr. Wang, see attestation - Date & Time Date: 10/06/18 Time: 11:47 <Etienne Wang Y - Last Filed: 10/06/18 18:35> Meds - Medications Medications: Current Medications Pantoprazole Sodium (Protonix Ec Tab) 40 mg PO DAILY DYAN Results - Vital Signs Recent Vital Signs: Last Vital Signs Temp 98.1 F 10/06/18 16:35 Pulse 69 10/06/18 16:35 Resp 20 10/06/18 16:35 BP 144/87 10/06/18 16:35 Pulse Ox 96 10/06/18 16:35 - Labs Result Diagrams: 10/06/18 05:03 10/06/18 05:03 Labs: Laboratory Results - last 24 hr 10/06/18 10/06/18 10/06/18 04:27 05:03 05:03 WBC 7.7 RBC 5.44 H Hgb 10.5 L Hct 34.0 MCV 62.4 L MCH 19.4 L MCHC 31.0 L RDW 19.9 H Plt Count 263 MPV 9.1 Neut % (Auto) 44.2 L Lymph % (Auto) 35.5 [place] % (Auto) 17.1 H Eos % (Auto) 2.4 Baso % (Auto) 0.8 Neut # (Auto) 3.4 Lymph # (Auto) 2.7 [place] # (Auto) 1.3 H Eos # (Auto) 0.2 Baso # (Auto) 0.1 PT INR Sodium 138 Potassium 3.9 Chloride 104 Carbon Dioxide 27 Anion Gap 10 BUN 9 Creatinine 0.8 Est GFR ( Amer) > 60 Est GFR (Non-Af Amer) > 60 Random Glucose 117 H D Calcium 8.9 Iron TIBC % Saturation Ferritin Total Bilirubin 5.1 H AST 1333 H ALT 1328 H Alkaline Phosphatase 201 H D Total Protein 7.7 Albumin 4.0 Globulin 3.7 Albumin/Globulin Ratio 1.1 Lipase 198 TSH 3rd Generation Urine Color Jessica Urine Clarity Hazy Urine pH 5.0 Ur Specific [place] 1.021 Urine Protein Negative Urine Glucose (UA) Normal Urine Ketones Negative Urine Blood Negative Urine Nitrate Negative Urine Bilirubin 2+ H Urine Urobilinogen 4.0 H Ur Leukocyte Esterase Trace Urine WBC (Auto) 10 H Urine RBC (Auto) 4 H Ur Squamous Epith Cells 5 Urine Opiates Screen Urine Methadone Screen Ur Barbiturates Screen Ur Phencyclidine Scrn Ur Amphetamines Screen U Benzodiazepines Scrn U Oth Cocaine Metabols U Cannabinoids Screen Hepatitis A IgM Ab Hep Bs Antigen Hep Bs Ag Neutralizatn Hep B Core IgM Ab Hepatitis C Antibody 10/06/18 10/06/18 10/06/18 07:46 07:46 11:42 WBC RBC Hgb Hct MCV MCH MCHC RDW Plt Count MPV Neut % (Auto) Lymph % (Auto) [place] % (Auto) Eos % (Auto) Baso % (Auto) Neut # (Auto) Lymph # (Auto) [place] # (Auto) Eos # (Auto) Baso # (Auto) PT 13.5 H INR 1.2 Sodium Potassium Chloride Carbon Dioxide Anion Gap BUN Creatinine Est GFR ( Amer) Est GFR (Non-Af Amer) Random Glucose Calcium Iron TIBC % Saturation Ferritin Total Bilirubin AST ALT Alkaline Phosphatase Total Protein Albumin Globulin Albumin/Globulin Ratio Lipase TSH 3rd Generation Urine Color Urine Clarity Urine pH Ur Specific [place] Urine Protein Urine Glucose (UA) Urine Ketones Urine Blood Urine Nitrate Urine Bilirubin Urine Urobilinogen Ur Leukocyte Esterase Urine WBC (Auto) Urine RBC (Auto) Ur Squamous Epith Cells Urine Opiates Screen Urine Methadone Screen Ur Barbiturates Screen Ur Phencyclidine Scrn Ur Amphetamines Screen U Benzodiazepines Scrn U Oth Cocaine Metabols U Cannabinoids Screen Hepatitis A IgM Ab Negative Hep Bs Antigen Reactive Hep Bs Ag Neutralizatn Confirmed positive H Hep B Core IgM Ab Reactive Hepatitis C Antibody Negative 10/06/18 10/06/18 10/06/18 11:42 11:42 14:22 WBC RBC Hgb Hct MCV MCH MCHC RDW Plt Count MPV Neut % (Auto) Lymph % (Auto) [place] % (Auto) Eos % (Auto) Baso % (Auto) Neut # (Auto) Lymph # (Auto) [place] # (Auto) Eos # (Auto) Baso # (Auto) PT INR Sodium Potassium Chloride Carbon Dioxide Anion Gap BUN Creatinine Est GFR ( Amer) Est GFR (Non-Af Amer) Random Glucose Calcium Iron 17 L TIBC 488 H % Saturation 3 L Ferritin 12.8 Total Bilirubin AST ALT Alkaline Phosphatase Total Protein Albumin Globulin Albumin/Globulin Ratio Lipase TSH 3rd Generation 2.31 Urine Color Urine Clarity Urine pH Ur Specific [place] Urine Protein Urine Glucose (UA) Urine Ketones Urine Blood Urine Nitrate Urine Bilirubin Urine Urobilinogen Ur Leukocyte Esterase Urine WBC (Auto) Urine RBC (Auto) Ur Squamous Epith Cells Urine Opiates Screen Negative Urine Methadone Screen Negative Ur Barbiturates Screen Negative Ur Phencyclidine Scrn Negative Ur Amphetamines Screen Negative U Benzodiazepines Scrn Negative U Oth Cocaine Metabols Negative U Cannabinoids Screen Positive H Hepatitis A IgM Ab Hep Bs Antigen Hep Bs Ag Neutralizatn Hep B Core IgM Ab Hepatitis C Antibody Attending/Attestation - Attestation I have personally seen and examined this patient.: Yes I have fully participated in the care of the patient.: Yes I have reviewed all pertinent clinical information: Yes Notes (Text): 10/06/18 18:28 I have seen and examined patient with GI fellow. Agree with above documentation with the following additions. In brief, this is a 42 year old female without significant medical history who presents to hospital with complaint of progressive abdominal pain and jaundice. She reports feeling fatigued for the past one week and endorses dark colored urine with associated right sided abdominal pain, 5/10 intensity. She notes one episode of vomiting earlier in the week but otherwise denies nausea, fever/chills, weight loss, skin rash, rectal bleeding, sick contacts, travel, pruritis, or prior history of liver disease. She denies IV drug use. She does note a new sexual partner one month ago but claims to use protection during intercourse. She received one new tattoo on her left hand which was 9 months ago. Obesity Anemia Transaminitis Acute HBV - Diet as tolerated - Continue to monitor mental status, INR, signs of progressive liver failure - Continue to monitor LFTs - Obtain abdominal US with duplex to rule out vascular thrombosis - Obtain additional hepatitis studies including EAg, HDV, viral DNA level, autoimmune panel - No current treatment indicated as per AASLD guidelines, will continue to monitor patient clinical course
[2018-10-06 12:01] LABS: INR 1.2; PROTHROMBIN TIME 13.5 SECONDS (9.7-12.2)
[2018-10-06 12:09] LABS: IRON 17 ug/dL (37-170)
[2018-10-06 12:20] LABS: % IRON SATURATION 3 (20-55); TOTAL IRON BINDING CAPACITY 488 ug/dL (250-450)
[2018-10-06 12:48] LABS: FERRITIN 12.8 ng/mL
[2018-10-06 14:41] VITALS: RESP 20
[2018-10-06 14:56] LABS: BARBITURATES, UR NEGATIVE (NEGATIVE); BENZODIAZEPINES, UR NEGATIVE (NEGATIVE); OPIATES, UR NEGATIVE (NEGATIVE); PHENCYCLIDINE, UR NEGATIVE (NEGATIVE)
--- NOTE | 2018-10-06 18:48 | CP.PCM.HP ---
History of Present Illness - History of Present Illness History of Present Illness: 42-year-old -[place] female morbidly obesity history of smoking no significant past medical history came because of the abdominal discomfort and ocular urine also appears yellow eyes see eventually patient was brought to the emergency room patient claims this is been going on for almost 2 weeks with mild constant dull ache pain in the whole upper abdomen without nausea vomiting fever chills diarrhea patient denies any IVDA patient denies any alcohol abuse patient has a multiple sexual partner patient's LFT very 1300s eventually being very high LFTs in the otherwise patient is admitted for further Present on Admission - Present on Admission Any Indicators Present on Admission: No Past Patient History - Infectious Disease Hx of Infectious Diseases: None - Past Social History Smoking Status: Heavy Smoker > 10 Cigarettes Daily - CARDIAC Hx Hypertension: Yes - PULMONARY Hx Respiratory Disorders: No - NEUROLOGICAL Hx Neurological Disorder: No - HEENT Hx HEENT Problems: No - RENAL Hx Chronic Kidney Disease: No - ENDOCRINE/METABOLIC Hx Endocrine Disorders: No - HEMATOLOGICAL/ONCOLOGICAL Hx Blood Disorders: No - INTEGUMENTARY Hx Dermatological Problems: No - MUSCULOSKELETAL/RHEUMATOLOGICAL Hx Fractures: Yes (Right Foot) - GASTROINTESTINAL Hx Gastritis: Yes - GENITOURINARY/GYNECOLOGICAL Hx Genitourinary Disorders: No - PSYCHIATRIC Hx Substance Use: Yes (Marijuana) - SURGICAL HISTORY Hx Surgeries: Yes Hx Section: Yes - ANESTHESIA Hx Anesthesia: Yes Hx Anesthesia Reactions: No Meds Allergies/Adverse Reactions: Allergies Allergy/AdvReac Type Severity Reaction Status Date / Time No Known Allergies Allergy Verified 10/06/18 03:26 Physical Exam - Constitutional Appears: Well - Head Exam Head Exam: ATRAUMATIC, NORMAL INSPECTION, NORMOCEPHALIC - Eye Exam Eye Exam: EOMI, Normal appearance, PERRL Pupil Exam: NORMAL ACCOMODATION, PERRL - ENT Exam ENT Exam: Mucous Membranes Moist, Normal Exam - Neck Exam Neck exam: Positive for: Normal Inspection - Respiratory Exam Respiratory Exam: Decreased Breath Sounds - Cardiovascular Exam Cardiovascular Exam: REGULAR RHYTHM, +S1, +S2 - GI/Abdominal Exam GI & Abdominal Exam: Diminished Bowel Sounds, Soft - Rectal Exam Rectal Exam: Deferred Results - Vital Signs Recent Vital Signs: Last Vital Signs Temp 98.1 F 10/06/18 16:35 Pulse 69 10/06/18 16:35 Resp 20 10/06/18 16:35 BP 144/87 10/06/18 16:35 Pulse Ox 96 10/06/18 16:35 - Labs Result Diagrams: 10/06/18 05:03 10/09/18 08:15 Labs: Laboratory Results - last 24 hr 10/06/18 10/06/18 10/06/18 04:27 05:03 05:03 WBC 7.7 RBC 5.44 H Hgb 10.5 L Hct 34.0 MCV 62.4 L MCH 19.4 L MCHC 31.0 L RDW 19.9 H Plt Count 263 MPV 9.1 Neut % (Auto) 44.2 L Lymph % (Auto) 35.5 [facility] [facility] % (Auto) 17.1 H Eos % (Auto) 2.4 Baso % (Auto) 0.8 Neut # (Auto) 3.4 Lymph # (Auto) 2.7 [facility] # (Auto) 1.3 H Eos # (Auto) 0.2 Baso # (Auto) 0.1 PT INR Sodium 138 Potassium 3.9 Chloride 104 Carbon Dioxide 27 Anion Gap 10 BUN 9 Creatinine 0.8 Est GFR ( Amer) > 60 Est GFR (Non-Af Amer) > 60 Random Glucose 117 H D Calcium 8.9 Iron TIBC % Saturation Ferritin Total Bilirubin 5.1 H AST 1333 H ALT 1328 H Alkaline Phosphatase 201 H D Total Protein 7.7 Albumin 4.0 Globulin 3.7 Albumin/Globulin Ratio 1.1 Lipase 198 TSH 3rd Generation Urine Color Jessica Urine Clarity Hazy Urine pH 5.0 Ur Specific Imbler 1.021 Urine Protein Negative Urine Glucose (UA) Normal Urine Ketones Negative Urine Blood Negative Urine Nitrate Negative Urine Bilirubin 2+ H Urine Urobilinogen 4.0 H Ur Leukocyte Esterase Trace Urine WBC (Auto) 10 H Urine RBC (Auto) 4 H Ur Squamous Epith Cells 5 Urine Opiates Screen Urine Methadone Screen Ur Barbiturates Screen Ur Phencyclidine Scrn Ur Amphetamines Screen U Benzodiazepines Scrn U Oth Cocaine Metabols U Cannabinoids Screen Hepatitis A IgM Ab Hep Bs Antigen Hep Bs Ag Neutralizatn Hep B Core IgM Ab Hepatitis C Antibody 10/06/18 10/06/18 10/06/18 07:46 07:46 11:42 WBC RBC Hgb Hct MCV MCH MCHC RDW Plt Count MPV Neut % (Auto) Lymph % (Auto) [facility] % (Auto) Eos % (Auto) Baso % (Auto) Neut # (Auto) Lymph # (Auto) [facility] # (Auto) Eos # (Auto) Baso # (Auto) PT 13.5 H INR 1.2 Sodium Potassium Chloride Carbon Dioxide Anion Gap BUN Creatinine Est GFR ( Amer) Est GFR (Non-Af Amer) Random Glucose Calcium Iron TIBC % Saturation Ferritin Total Bilirubin AST ALT Alkaline Phosphatase Total Protein Albumin Globulin Albumin/Globulin Ratio Lipase TSH 3rd Generation Urine Color Urine Clarity Urine pH Ur Specific Imbler Urine Protein Urine Glucose (UA) Urine Ketones Urine Blood Urine Nitrate Urine Bilirubin Urine Urobilinogen Ur Leukocyte Esterase Urine WBC (Auto) Urine RBC (Auto) Ur Squamous Epith Cells Urine Opiates Screen Urine Methadone Screen Ur Barbiturates Screen Ur Phencyclidine Scrn Ur Amphetamines Screen U Benzodiazepines Scrn U Oth Cocaine Metabols U Cannabinoids Screen Hepatitis A IgM Ab Negative Hep Bs Antigen Reactive Hep Bs Ag Neutralizatn Confirmed positive H Hep B Core IgM Ab Reactive Hepatitis C Antibody Negative 10/06/18 10/06/18 10/06/18 11:42 11:42 14:22 WBC RBC Hgb Hct MCV MCH MCHC RDW Plt Count MPV Neut % (Auto) Lymph % (Auto) [facility] % (Auto) Eos % (Auto) Baso % (Auto) Neut # (Auto) Lymph # (Auto) [facility] # (Auto) Eos # (Auto) Baso # (Auto) PT INR Sodium Potassium Chloride Carbon Dioxide Anion Gap BUN Creatinine Est GFR ( Amer) Est GFR (Non-Af Amer) Random Glucose Calcium Iron 17 L TIBC 488 H % Saturation 3 L Ferritin 12.8 Total Bilirubin AST ALT Alkaline Phosphatase Total Protein Albumin Globulin Albumin/Globulin Ratio Lipase TSH 3rd Generation 2.31 Urine Color Urine Clarity Urine pH Ur Specific Imbler Urine Protein Urine Glucose (UA) Urine Ketones Urine Blood Urine Nitrate Urine Bilirubin Urine Urobilinogen Ur Leukocyte Esterase Urine WBC (Auto) Urine RBC (Auto) Ur Squamous Epith Cells Urine Opiates Screen Negative Urine Methadone Screen Negative Ur Barbiturates Screen Negative Ur Phencyclidine Scrn Negative Ur Amphetamines Screen Negative U Benzodiazepines Scrn Negative U Oth Cocaine Metabols Negative U Cannabinoids Screen Positive H Hepatitis A IgM Ab Hep Bs Antigen Hep Bs Ag Neutralizatn Hep B Core IgM Ab Hepatitis C Antibody Assessment & Plan (1) Abdominal pain Status: Acute (2) Abnormal LFTs (liver function tests) Status: Acute (3) Abdominal pain Status: Acute (4) Back muscle spasm Status: Acute (5) Chest discomfort Status: Acute (6) Chest pain, non-cardiac Status: Acute (7) Chest wall pain Status: Acute (8) Contusion of right thigh Status: Acute (9) Costochondritis Status: Acute (10) Gastritis Status: Acute (11) Gastritis Status: Acute (12) Injury of right lower arm Status: Acute (13) Laryngitis Status: Acute (14) Menorrhagia Status: Acute (15) Toothache Status: Acute (16) Trichomoniasis Status: Acute (17) UTI (urinary tract infection) Status: Acute (18) Upper respiratory infection Status: Acute - Assessment and Plan (Free Text) Plan: several lfts hepatisit b serology will avoid med gi consult heaptitis serology Pleasant epidural block number Diet as tolerated monitor mental status Abdominal sonogram Also viral DNA panel Autoimmune panel
--- NOTE | 2018-10-07 09:30 | CP.PCM.PN ---
<Huber Ibarra - Last Filed: 10/07/18 15:31> Subjective - Date & Time of Evaluation Date of Evaluation: 10/07/18 Time of Evaluation: 09:28 - Subjective Subjective: PGY-2 Progress Note: Dr. Tenzin New Service Patient seen and examined at bedside. Per nursing no acute events occurred overnight. Patient denies any fevers, chills, headaches, abdominal pain, constipation, diarrhea, syncopal episodes, or any other complaints. Objective - Vital Signs/Intake and Output Vital Signs (last 24 hours): Temp Pulse Resp BP Pulse Ox 97.4 F L 60 20 117/74 98 10/07/18 07:00 10/07/18 07:00 10/07/18 07:00 10/07/18 07:00 10/07/18 07:00 Intake and Output: 10/07/18 10/07/18 06:59 18:59 Intake Total 240 Balance 240 - Medications Medications: Current Medications Pantoprazole Sodium (Protonix Ec Tab) 40 mg PO DAILY DYAN Pneumococcal Polyvalent Vaccine (Pneumovax 23 Vaccine) 0.5 ml IM .ONCE ONE Stop: 10/08/18 10:01 - Labs Labs: 10/06/18 05:03 10/06/18 05:03 PT 13.5 SECONDS (9.7-12.2) H 10/06/18 11:42 INR 1.2 10/06/18 11:42 - Head Exam Head Exam: ATRAUMATIC, NORMAL INSPECTION - Eye Exam Eye Exam: EOMI, Normal appearance, PERRL Pupil Exam: NORMAL ACCOMODATION - ENT Exam ENT Exam: Mucous Membranes Moist, Normal Oropharynx - Respiratory Exam Respiratory Exam: Clear to Ausculation Bilateral, NORMAL BREATHING PATTERN. absent: Respiratory Distress - Cardiovascular Exam Cardiovascular Exam: REGULAR RHYTHM, RRR, +S1, +S2. absent: Rubs - GI/Abdominal Exam GI & Abdominal Exam: Soft, Normal Bowel Sounds. absent: Hyperactive Bowel Sounds - Neurological Exam Neurological Exam: Alert, Awake, CN II-XII Intact, Oriented x3 - Psychiatric Exam Psychiatric exam: Normal Affect, Normal Mood. absent: Depressed - Skin Skin Exam: Dry, Normal Color Assessment and Plan - Assessment and Plan (Free Text) Assessment: 42 year old female presents to the hospital with abdominal discomfort and y ellowing of the eyes. Plan: 1.Acute hepatitis B infection -T. bili :5.1 -Direct bili, LDH ordered .Will f/u with results. -AST: 1333/ALT:1328... Trending upwards. Will continue to monitor -Hepatitis D, ANAM, Mitochondrial, Smooth muscle received. Will f/u with results. -Cable Reeler Dr. Wang consulted: -Elevated liver enzymes (hepatocellular pattern) due to acute hep B, and possible source from recent (1-6 months) sexual partners -Chronic anemia is iron deficiency with symptoms of pica. However, underlying thalassemia (elevated RBCs) is not ruled out. -U/S reviewed, unremarkable. CBD 3.7mm, no stones observed. negative for thrombus. -Order hepatitis D labs, Hep B e Ag, viral load -d. bili, LDH -She will likely need endoscopic evaluation for her anemia however this is not emergent. -Educated to avoid sexual contact until Hep B resolves or risk of tr ansmission to partner. -She will need close follow up as an outpatient to trend ALT, and ultimately test for seroconversion. If it does not resolve in 6 months, it will be considered chronic hepatitis B. This is the case in 5% of adults with acute hep B. -We would NOT recommend discharging patient until liver tests are trending down. 2.Chronic anemia -Hgb 10.5 on admission -Hemodynamically stable. -Iron studies: Fe-17 %Saturation: 3% Ferritin: 12.8 TIBC: 488 Medications: Start Ferrous Sulfate PO DAILY Start Colace 100mg PO DAILY PPX -Protonix -SCD's Plan discussed with Attending Dr. Tenzin Ibarra, PGY-2 <[place] New S - Last Filed: 10/07/18 19:23> Objective - Vital Signs/Intake and Output Vital Signs (last 24 hours): Temp Pulse Resp BP Pulse Ox 98.3 F 67 20 134/82 97 10/07/18 15:00 10/07/18 15:00 10/07/18 15:00 10/07/18 15:00 10/07/18 15:00 Intake and Output: 10/07/18 10/08/18 18:59 06:59 Intake Total 700 Balance 700 - Medications Medications: Current Medications Docusate Sodium (Colace) 100 mg PO DAILY DYAN Ferrous Sulfate (Feosol) 325 mg PO DAILY [facility] Pantoprazole Sodium (Protonix Ec Tab) 40 mg PO DAILY DYAN Last Admin: 10/07/18 09:55 Dose: 40 mg Pneumococcal Polyvalent Vaccine (Pneumovax 23 Vaccine) 0.5 ml IM .ONCE ONE Stop: 10/08/18 10:01 - Labs Labs: 10/06/18 05:03 10/07/18 11:45 PT 13.8 SECONDS (9.7-12.2) H 10/07/18 11:45 INR 1.3 10/07/18 11:45 Attending/Attestation - Attestation I have personally seen and examined this patient.: Yes I have fully participated in the care of the patient.: Yes I have reviewed all pertinent clinical information, including history, physical exam and plan: Yes Notes (Text): 10/07/18 19:22 case seen and d.w staff and resident, concurred with finding and management.. Patient with a high LFT
--- NOTE | 2018-10-07 09:43 | US ---
Date of service: 10/07/2018 PROCEDURE: Limited abdominal ultrasound HISTORY: Evaluation of portal vein, hepatic vein COMPARISON: None available. TECHNIQUE: Duplex Doppler ultrasound of the portal and hepatic veins was performed. FINDINGS: There is normal direction of flow and spectral waveform in the portal vein. There is normal direction of flow and spectral waveform in the hepatic veins. IMPRESSION: Normal direction of flow and spectral waveform in the portal and hepatic veins.
[2018-10-07] MEDS: Pantoprazole 40 mg EC Tab PO SCH (09:55)
--- NOTE | 2018-10-07 11:27 | CP.PCM.PN ---
<Peter Hui - Last Filed: 10/07/18 12:56> Subjective - Date & Time of Evaluation Date of Evaluation: 10/07/18 Time of Evaluation: 11:24 - Subjective Subjective: GI Fellow, PGY4, progress note No complaints. Tolerating diet. Denies abdominal pain, fever, vomiting, diarrhea. Mentation is good. 5pt ROS completed and negative except for above. Objective - Vital Signs/Intake and Output Vital Signs (last 24 hours): Temp Pulse Resp BP Pulse Ox 97.4 F L 60 20 117/74 98 10/07/18 07:00 10/07/18 07:00 10/07/18 07:00 10/07/18 07:00 10/07/18 07:00 Intake and Output: 10/07/18 10/07/18 06:59 18:59 Intake Total 240 Balance 240 - Medications Medications: Current Medications Pantoprazole Sodium (Protonix Ec Tab) 40 mg PO DAILY DYAN Last Admin: 10/07/18 09:55 Dose: 40 mg Pneumococcal Polyvalent Vaccine (Pneumovax 23 Vaccine) 0.5 ml IM .ONCE ONE Stop: 10/08/18 10:01 - Labs Labs: 10/06/18 05:03 10/06/18 05:03 PT 13.5 SECONDS (9.7-12.2) H 10/06/18 11:42 INR 1.2 10/06/18 11:42 - Constitutional Appears: Non-toxic, No Acute Distress - Eye Exam Eye Exam: EOMI, Scleral icterus - Respiratory Exam Respiratory Exam: Clear to Ausculation Bilateral, NORMAL BREATHING PATTERN - Cardiovascular Exam Cardiovascular Exam: REGULAR RHYTHM, +S1, +S2 - GI/Abdominal Exam GI & Abdominal Exam: Soft, Normal Bowel Sounds. absent: Tenderness - Neurological Exam Neurological Exam: Alert, Awake, Oriented x3 - Psychiatric Exam Psychiatric exam: Normal Affect, Normal Mood - Skin Skin Exam: Dry, Warm Assessment and Plan - Assessment and Plan (Free Text) Assessment: #Acute hepatitis B #Abnormal liver tests #Chronic anemia, iron deficiency #Obesity #Tobacco dependence PLAN: -Elevated liver enzymes (hepatocellular pattern) due to acute hep B, and possible source from recent (1-6 months) sexual partners -Chronic anemia is iron deficiency with symptoms of pica. However, underlying thalassemia (elevated RBCs) is not ruled out. -U/S reviewed, unremarkable. CBD 3.7mm, no stones observed. negative for thrombus. -Order hepatitis D labs, Hep B e Ag, viral load -d. bili, LDH -She will likely need endoscopic evaluation for her anemia however this is not emergent. -Educated to avoid sexual contact until Hep B resolves or risk of transmission to partner. -She will need close follow up as an outpatient to trend ALT, and ultimately test for seroconversion. If it does not resolve in 6 months, it will be considered chronic hepatitis B. This is the case in 5% of adults with acute hep B. -We would NOT recommend discharging patient until liver tests are trending down. Case discussed with Dr. Wang, see attestation <Etienne Wang Y - Last Filed: 10/07/18 13:17> Objective - Vital Signs/Intake and Output Vital Signs (last 24 hours): Temp Pulse Resp BP Pulse Ox 97.4 F L 60 20 117/74 98 10/07/18 07:00 10/07/18 07:00 10/07/18 07:00 10/07/18 07:00 10/07/18 07:00 Intake and Output: 10/07/18 10/07/18 06:59 18:59 Intake Total 240 Balance 240 - Medications Medications: Current Medications Docusate Sodium (Colace) 100 mg PO DAILY DYAN Ferrous Sulfate (Feosol) 325 mg PO DAILY DYAN Pantoprazole Sodium (Protonix Ec Tab) 40 mg PO DAILY DYAN Last Admin: 10/07/18 09:55 Dose: 40 mg Pneumococcal Polyvalent Vaccine (Pneumovax 23 Vaccine) 0.5 ml IM .ONCE ONE Stop: 10/08/18 10:01 - Labs Labs: 10/06/18 05:03 10/07/18 11:45 PT 13.8 SECONDS (9.7-12.2) H 10/07/18 11:45 INR 1.3 10/07/18 11:45 Attending/Attestation - Attestation I have personally seen and examined this patient.: Yes I have fully participated in the care of the patient.: Yes I have reviewed all pertinent clinical information, including history, physical exam and plan: Yes Notes (Text): 10/07/18 13:15 I have seen and examined patient with GI fellow. No acute events overnight, she is seen resting in bed comfortably. She denies abdominal pain, nausea, vomiting, diarrhea, fever/chills. Tolerating PO diet without difficulty. Re view of vitals from today are normal. Obesity Chronic anemia Transaminitis - acute HBV - Diet as tolerated - LFTs unchanged compared to yesterday, continue to monitor - Continue to monitor INR, mental status - Awaiting for autoimmune panel and additional HBV serologic study results - Abdominal US with duplex reviewed showing no abnormalities - Will continue to monitor patient clinical course
[2018-10-07 12:01] LABS: INR 1.3; PROTHROMBIN TIME 13.8 SECONDS (9.7-12.2)
[2018-10-07 12:22] LABS: ALB/GLOB RATIO 1.1 (1.0-2.1); ALBUMIN 3.8 g/dL (3.5-5.0); BLOOD UREA NITROGEN 6 mg/dL (7-17); GFR NON-AFRICAN AMERICAN > 60
[2018-10-07 12:29] LABS: ALT/SGPT 1381 U/L (9-52)
[2018-10-07 12:40] LABS: AST/SGOT 1757 U/L (14-36)
--- NOTE | 2018-10-07 17:33 | CP.PCM.PN ---
Subjective - Date & Time of Evaluation Date of Evaluation: 10/07/18 Time of Evaluation: 09:00 - Subjective Subjective: Patient seen today no nausea no vomiting no dizziness no diarrhea no chest pain no shortness of breath no fever Objective - Vital Signs/Intake and Output Vital Signs (last 24 hours): Temp Pulse Resp BP Pulse Ox 98.3 F 67 20 134/82 97 10/07/18 15:00 10/07/18 15:00 10/07/18 15:00 10/07/18 15:00 10/07/18 15:00 Intake and Output: 10/07/18 10/07/18 06:59 18:59 Intake Total 240 700 Balance 240 700 - Medications Medications: Current Medications Docusate Sodium (Colace) 100 mg PO DAILY DYAN Ferrous Sulfate (Feosol) 325 mg PO DAILY DYAN Pantoprazole Sodium (Protonix Ec Tab) 40 mg PO DAILY DYAN Last Admin: 10/07/18 09:55 Dose: 40 mg Pneumococcal Polyvalent Vaccine (Pneumovax 23 Vaccine) 0.5 ml IM .ONCE ONE Stop: 10/08/18 10:01 - Labs Labs: 10/06/18 05:03 10/07/18 11:45 PT 13.8 SECONDS (9.7-12.2) H 10/07/18 11:45 INR 1.3 10/07/18 11:45 - Constitutional Appears: Well - Head Exam Head Exam: ATRAUMATIC, NORMAL INSPECTION, NORMOCEPHALIC - Eye Exam Eye Exam: EOMI, Normal appearance, PERRL Pupil Exam: NORMAL ACCOMODATION, PERRL - ENT Exam ENT Exam: Mucous Membranes Moist, Normal Exam - Neck Exam Neck Exam: Full ROM, Normal Inspection. absent: Lymphadenopathy - Respiratory Exam Respiratory Exam: Decreased Breath Sounds - Cardiovascular Exam Cardiovascular Exam: REGULAR RHYTHM, +S1, +S2 - GI/Abdominal Exam GI & Abdominal Exam: Soft, Diminished Bowel Sounds - Rectal Exam Rectal Exam: Deferred - Neurological Exam Neurological Exam: Oriented x3 Assessment and Plan (1) Abdominal pain Status: Acute (2) Abnormal LFTs (liver function tests) Status: Acute (3) Abdominal pain Status: Acute (4) Back muscle spasm Status: Acute (5) Chest discomfort Status: Acute (6) Chest pain, non-cardiac Status: Acute (7) Chest wall pain Status: Acute (8) Contusion of right thigh Status: Acute (9) Costochondritis Status: Acute (10) Gastritis Status: Acute (11) Gastritis Status: Acute (12) Injury of right lower arm Status: Acute (13) Laryngitis Status: Acute (14) Menorrhagia Status: Acute (15) Toothache Status: Acute (16) Trichomoniasis Status: Acute (17) UTI (urinary tract infection) Status: Acute (18) Upper respiratory infection Status: Acute - Assessment and Plan (Free Text) Plan: Coolness Physical Pneumovax 23 vaccine Protonix EC tab Medications reviewed Vitals reviewed Labs reviewed Hepatitis workup Anemia workup ultrasound revealed common bile duct 3.7 cm millimeters without stones may need endoscopic evaluation of anemia monitor LFT every day LFTs worsening Diet as tolerated Ordered autoimmune panel and additional hepatitis B virus serology 42 year old female presents to the hospital with abdominal discomfort and yellowing of the eyes. Plan: 1.Acute hepatitis B infection -T. bili :5.1 -Direct bili, LDH ordered .Will f/u with results. -AST: 1333/ALT:1328... Trending upwards. Will continue to monitor -Hepatitis D, ANAM, Mitochondrial, Smooth muscle received. Will f/u with results. -Gas Plant Worker Dr. Wang consulted: -Elevated liver enzymes (hepatocellular pattern) due to acute hep B, and possible source from recent (1-6 months) sexual partners -Chronic anemia is iron deficiency with symptoms of pica. However, underlying thalassemia (elevated RBCs) is not ruled out. -U/S reviewed, unremarkable. CBD 3.7mm, no stones observed. negative for thrombus. -Order hepatitis D labs, Hep B e Ag, viral load -d. bili, LDH -She will likely need endoscopic evaluation for her anemia however this is not emergent. -Educated to avoid sexual contact until Hep B resolves or risk of t ransmission to partner. -She will need close follow up as an outpatient to trend ALT, and ultimately test for seroconversion. If it does not resolve in 6 months, it will be considered chronic hepatitis B. This is the case in 5% of adults with acute hep B. -We would NOT recommend discharging patient until liver tests are trending down. 2.Chronic anemia -Hgb 10.5 on admission -Hemodynamically stable. -Iron studies: Fe-17 %Saturation: 3% Ferritin: 12.8 TIBC: 488 Medications: Start Ferrous Sulfate PO DAILY Start Colace 100mg PO DAILY PPX -Protonix -SCD's
[2018-10-08 07:27] LABS: INR 1.2; PROTHROMBIN TIME 13.5 SECONDS (9.7-12.2)
[2018-10-08 07:42] LABS: ALBUMIN 3.7 g/dL (3.5-5.0); BLOOD UREA NITROGEN 5 mg/dL (7-17); CALCIUM 8.9 mg/dl (8.6-10.4); GFR NON-AFRICAN AMERICAN > 60
[2018-10-08 07:57] LABS: ALT/SGPT 1472 U/L (9-52); AST/SGOT 1589 U/L (14-36)
[2018-10-08] MEDS ORDERED: Pneumococcal 23-Valent Vaccine IM ONE (10:00)
[2018-10-08] MEDS: Pantoprazole 40 mg EC Tab PO SCH (10:30)
--- NOTE | 2018-10-08 12:48 | CP.PCM.PN ---
Subjective - Date & Time of Evaluation Date of Evaluation: 10/08/18 Time of Evaluation: 08:40 - Subjective Subjective: eating breakfast slept well no ruq pain report conveye to pt gi followup Objective - Vital Signs/Intake and Output Vital Signs (last 24 hours): Temp Pulse Resp BP Pulse Ox 97.8 F 69 20 143/79 97 10/08/18 08:00 10/08/18 08:00 10/08/18 08:00 10/08/18 08:00 10/08/18 08:00 - Medications Medications: Current Medications Diphenhydramine HCl (Benadryl) 25 mg PO [facility] Last Admin: 10/07/18 23:17 Dose: 25 mg Docusate Sodium (Colace) 100 mg PO DAILY [facility] Last Admin: 10/08/18 10:30 Dose: 100 mg Ferrous Sulfate (Feosol) 325 mg PO DAILY [facility] Last Admin: 10/08/18 10:30 Dose: 325 mg Pantoprazole Sodium (Protonix Ec Tab) 40 mg PO DAILY [facility] Last Admin: 10/08/18 10:30 Dose: 40 mg - Labs Labs: 10/06/18 05:03 10/08/18 07:04 PT 13.5 SECONDS (9.7-12.2) H 10/08/18 07:04 INR 1.2 10/08/18 07:04 - Constitutional Appears: Well - Head Exam Head Exam: ATRAUMATIC, NORMAL INSPECTION, NORMOCEPHALIC - Eye Exam Eye Exam: EOMI, Normal appearance, PERRL Pupil Exam: NORMAL ACCOMODATION, PERRL - ENT Exam ENT Exam: Mucous Membranes Moist, Normal Exam - Neck Exam Neck Exam: Full ROM, Normal Inspection. absent: Lymphadenopathy - Respiratory Exam Respiratory Exam: Decreased Breath Sounds - Cardiovascular Exam Cardiovascular Exam: REGULAR RHYTHM, +S1, +S2 - GI/Abdominal Exam GI & Abdominal Exam: Soft, Diminished Bowel Sounds - Rectal Exam Rectal Exam: Deferred - Neurological Exam Neurological Exam: Oriented x3 Assessment and Plan (1) Abdominal pain Status: Acute (2) Abnormal LFTs (liver function tests) Status: Acute (3) Abdominal pain Status: Acute (4) Back muscle spasm Status: Acute (5) Chest discomfort Status: Acute (6) Chest pain, non-cardiac Status: Acute (7) Chest wall pain Status: Acute (8) Contusion of right thigh Status: Acute (9) Costochondritis Status: Acute (10) Gastritis Status: Acute (11) Gastritis Status: Acute (12) Injury of right lower arm Status: Acute (13) Laryngitis Status: Acute (14) Menorrhagia Status: Acute (15) Toothache Status: Acute (16) Trichomoniasis Status: Acute (17) UTI (urinary tract infection) Status: Acute (18) Upper respiratory infection Status: Acute - Assessment and Plan (Free Text) Plan: Benadryl Colace Cyrus Protonix EC tablet Medications, labs, vitals reviewed SGPT [id number] went up SGOT 1751 08/19/1988 decreased a little bit TSH is normal sodium 138 Potassium 3.8 dm pending antimitochaodrial ab pending anti smooth muscle ab negative Toxicology urine cannabinoids positive Abdominal sonogram done again on 10 07 which revealed normal direction of flow and spectral wave in the portal and hepatic veins Hep E ag + -Order hepatitis D labs, viral load PENDING -d. bili, LDH -She will likely need endoscopic evaluation for her anemia however this is not emergent. -Educated to avoid alcohol and sexual contact until Hep B resolves or risk of transmission to partner. willnot dc pt unless lft is trending down
--- NOTE | 2018-10-08 16:16 | CP.PCM.PN ---
<Peter Hui - Last Filed: 10/08/18 16:12> Subjective - Date & Time of Evaluation Date of Evaluation: 10/08/18 Time of Evaluation: 16:12 - Subjective Subjective: No new clinical changes. Denies abdominal pain, confusion, fever. Objective - Vital Signs/Intake and Output Vital Signs (last 24 hours): Temp Pulse Resp BP Pulse Ox 97.8 F 69 20 143/79 97 10/08/18 08:00 10/08/18 08:00 10/08/18 08:00 10/08/18 08:00 10/08/18 08:00 Intake and Output: 10/08/18 10/08/18 06:59 18:59 Intake Total 700 Balance 700 - Medications Medications: Current Medications Diphenhydramine HCl (Benadryl) 25 mg PO HS [facility] Last Admin: 10/07/18 23:17 Dose: 25 mg Docusate Sodium (Colace) 100 mg PO DAILY [facility] Last Admin: 10/08/18 10:30 Dose: 100 mg Ferrous Sulfate (Feosol) 325 mg PO DAILY [facility] Last Admin: 10/08/18 10:30 Dose: 325 mg Pantoprazole Sodium (Protonix Ec Tab) 40 mg PO DAILY [facility] Last Admin: 10/08/18 10:30 Dose: 40 mg - Labs Labs: 10/06/18 05:03 10/08/18 07:04 PT 13.5 SECONDS (9.7-12.2) H 10/08/18 07:04 INR 1.2 10/08/18 07:04 - Constitutional Appears: Non-toxic, No Acute Distress - Respiratory Exam Respiratory Exam: Clear to Ausculation Bilateral, NORMAL BREATHING PATTERN - Cardiovascular Exam Cardiovascular Exam: REGULAR RHYTHM, +S1, +S2 - GI/Abdominal Exam GI & Abdominal Exam: Soft, Normal Bowel Sounds. absent: Tenderness - Neurological Exam Neurological Exam: Alert, Awake, Oriented x3 - Psychiatric Exam Psychiatric exam: Normal Affect, Normal Mood Assessment and Plan - Assessment and Plan (Free Text) Assessment: #Acute hepatitis B - hep E Ag + #Abnormal liver tests #Chronic anemia, iron deficiency #Obesity #Tobacco dependence PLAN: -Elevated liver enzymes (hepatocellular pattern) due to acute hep B, and possible source from recent (1-6 months) sexual partners -Chronic anemia is iron deficiency with symptoms of pica. However, underlying thalassemia (elevated RBCs) is not ruled out. -U/S reviewed, unremarkable. CBD 3.7mm, no stones observed. negative for thrombus. -Hep E ag + -Order hepatitis D labs, viral load PENDING -d. bili, LDH -She will likely need endoscopic evaluation for her anemia however this is not emergent. -Educated to avoid alcohol and sexual contact until Hep B resolves or risk of transmission to partner. -She will need close follow up as an outpatient to trend ALT, and ultimately test for seroconversion. If it does not resolve in 6 months, it will be considered chronic hepatitis B. This is the case in 5% of adults with acute hep B. -We would NOT recommend discharging patient until liver tests are trending down. Case discussed with Dr. Wang, see attestation <Chalino Jasmine - Last Filed: 10/08/18 22:26> Objective - Vital Signs/Intake and Output Vital Signs (last 24 hours): Temp Pulse Resp BP Pulse Ox 98.1 F 68 20 136/89 98 10/08/18 15:30 10/08/18 15:30 10/08/18 15:30 10/08/18 15:30 10/08/18 15:30 Intake and Output: 10/08/18 10/09/18 18:59 06:59 Intake Total 700 Balance 700 - Medications Medications: Current Medications Diphenhydramine HCl (Benadryl) 25 mg PO HS [facility] Last Admin: 10/08/18 21:34 Dose: 25 mg Docusate Sodium (Colace) 100 mg PO DAILY [facility] Last Admin: 10/08/18 10:30 Dose: 100 mg Ferrous Sulfate (Feosol) 325 mg PO DAILY [facility] Last Admin: 10/08/18 10:30 Dose: 325 mg Ketorolac Tromethamine (Toradol) 10 mg PO Q6 PRN PRN Reason: Pain, moderate (4-7) Last Admin: 10/08/18 19:28 Dose: 10 mg Morphine Sulfate (Morphine) 2 mg IVP Q6 PRN PRN Reason: Pain, severe (8-10) Pantoprazole Sodium (Protonix Ec Tab) 40 mg PO DAILY [facility] Last Admin: 10/08/18 10:30 Dose: 40 mg - Labs Labs: 10/06/18 05:03 04/06/19 07:04 PT 13.5 SECONDS (9.7-12.2) H 10/08/18 07:04 INR 1.2 10/08/18 07:04 Attending/Attestation - Attestation I have personally seen and examined this patient.: Yes I have fully participated in the care of the patient.: Yes I have reviewed all pertinent clinical information, including history, physical exam and plan: Yes Notes (Text): 10/08/18 22:21 Chart reviewed. The pt examined this am and discussed with Dr. Hui Agree with the above-documented findings, assessment and recommendations.
[2018-10-09 08:32] LABS: INR 1.4; PROTHROMBIN TIME 15.3 SECONDS (9.7-12.2)
--- NOTE | 2018-10-09 08:41 | CP.PCM.PN ---
<Peter Hui - Last Filed: 10/09/18 08:39> Subjective - Date & Time of Evaluation Date of Evaluation: 10/09/18 Time of Evaluation: 08:40 - Subjective Subjective: No clinical changes. Denies abdominal pain, fever, vomiting, diarrhea. Tolerating diet. Objective - Vital Signs/Intake and Output Vital Signs (last 24 hours): Temp Pulse Resp BP Pulse Ox 98 F 74 20 141/89 100 10/09/18 01:03 10/09/18 01:03 10/09/18 01:03 10/09/18 01:03 10/09/18 01:03 Intake and Output: 10/09/18 10/09/18 06:59 18:59 Intake Total 760 Balance 760 - Medications Medications: Current Medications Diphenhydramine HCl (Benadryl) 25 mg PO [facility] Last Admin: 10/08/18 21:34 Dose: 25 mg Docusate Sodium (Colace) 100 mg PO DAILY [facility] Last Admin: 10/08/18 10:30 Dose: 100 mg Ferrous Sulfate (Feosol) 325 mg PO DAILY [facility] Last Admin: 10/08/18 10:30 Dose: 325 mg Ketorolac Tromethamine (Toradol) 10 mg PO Q6 PRN PRN Reason: Pain, moderate (4-7) Last Admin: 10/08/18 19:28 Dose: 10 mg Morphine Sulfate (Morphine) 2 mg IVP Q6 PRN PRN Reason: Pain, severe (8-10) Pantoprazole Sodium (Protonix Ec Tab) 40 mg PO DAILY [facility] Last Admin: 10/08/18 10:30 Dose: 40 mg - Labs Labs: 10/06/18 05:03 10/08/18 07:04 PT 15.3 SECONDS (9.7-12.2) H 10/09/18 08:15 INR 1.4 10/09/18 08:15 - Constitutional Appears: Non-toxic, No Acute Distress - Eye Exam Eye Exam: EOMI, Scleral icterus. absent: Normal appearance - Respiratory Exam Respiratory Exam: Clear to Ausculation Bilateral, NORMAL BREATHING PATTERN - Cardiovascular Exam Cardiovascular Exam: REGULAR RHYTHM, +S1, +S2 - GI/Abdominal Exam GI & Abdominal Exam: Soft, Normal Bowel Sounds. absent: Tenderness - Extremities Exam Extremities Exam: Normal Inspection. absent: Pedal Edema - Neurological Exam Neurological Exam: Alert, Awake, Oriented x3 - Psychiatric Exam Psychiatric exam: Normal Affect, Normal Mood Assessment and Plan - Assessment and Plan (Free Text) Assessment: #Acute hepatitis B - hep E Ag + #Abnormal liver tests #Chronic anemia, iron deficiency #Obesity #Tobacco dependence PLAN: -Elevated liver enzymes (hepatocellular pattern) due to acute hep B, and possible source from recent (1-6 months) sexual partners -Chronic anemia is iron deficiency with symptoms of pica. However, underlying thalassemia (elevated RBCs) is not ruled out. -U/S reviewed, unremarkable. CBD 3.7mm, no stones observed. negative for thrombu s. -Hep E ag + -Order hepatitis D labs, viral load PENDING -She will likely need endoscopic evaluation for her anemia however this is not emergent. -Educated to avoid alcohol and sexual contact until Hep B resolves or risk of transmission to partner. -She will need close follow up as an outpatient to trend ALT, and ultimately test for seroconversion. If it does not resolve in 6 months, it will be considered chronic hepatitis B. This is the case in 5% of adults with acute hep B. -We would NOT recommend discharging patient until liver tests are trending down. Case discussed with Dr. Jasmine see attestation <Chalino Jasmine - Last Filed: 10/09/18 22:33> Objective - Vital Signs/Intake and Output Vital Signs (last 24 hours): Temp Pulse Resp BP Pulse Ox 97.8 F 72 20 146/86 97 10/09/18 16:00 10/09/18 16:00 10/09/18 16:00 10/09/18 16:00 10/09/18 16:00 Intake and Output: 10/09/18 10/10/18 18:59 06:59 Intake Total 700 Balance 700 - Medications Medications: Current Medications Diphenhydramine HCl (Benadryl) 25 mg PO HS [facility] Last Admin: 10/09/18 21:57 Dose: 25 mg Docusate Sodium (Colace) 100 mg PO DAILY [facility] Last Admin: 10/09/18 10:15 Dose: 100 mg Ferrous Sulfate (Feosol) 325 mg PO DAILY [facility] Last Admin: 10/09/18 10:16 Dose: 325 mg Ketorolac Tromethamine (Toradol) 10 mg PO Q6 PRN PRN Reason: Pain, moderate (4-7) Last Admin: 10/08/18 19:28 Dose: 10 mg Morphine Sulfate (Morphine) 2 mg IVP Q6 PRN PRN Reason: Pain, severe (8-10) Pantoprazole Sodium (Protonix Ec Tab) 40 mg PO DAILY [facility] Last Admin: 10/09/18 10:16 Dose: 40 mg - Labs Labs: 10/06/18 05:03 10/09/18 08:15 PT 15.3 SECONDS (9.7-12.2) H 10/09/18 08:15 INR 1.4 10/09/18 08:15 Attending/Attestation - Attestation I have personally seen and examined this patient.: Yes I have fully participated in the care of the patient.: Yes I have reviewed all pertinent clinical information, including history, physical exam and plan: Yes Notes (Text): 10/09/18 22:33 Chart reviewed. The pt examined this am and discussed with Dr. Hui Agree with the above-documented findings, assessment and recommendations.
[2018-10-09 08:48] LABS: ALBUMIN 3.6 g/dL (3.5-5.0); BLOOD UREA NITROGEN 8 mg/dL (7-17); CALCIUM 8.8 mg/dl (8.6-10.4); GFR NON-AFRICAN AMERICAN > 60
[2018-10-09 08:57] LABS: ALT/SGPT 1274 U/L (9-52); AST/SGOT 1320 U/L (14-36)
--- NOTE | 2018-10-09 10:02 | CP.PCM.PN ---
Subjective - Date & Time of Evaluation Date of Evaluation: 10/09/18 Time of Evaluation: 09:20 - Subjective Subjective: Patient seen and examined today No nausea No vomiting No fever No diarrhea No dizziness No shortness of breath Objective - Vital Signs/Intake and Output Vital Signs (last 24 hours): Temp Pulse Resp BP Pulse Ox 98 F 74 20 141/89 100 10/09/18 01:03 10/09/18 01:03 10/09/18 01:03 10/09/18 01:03 10/09/18 01:03 Intake and Output: 10/09/18 10/09/18 06:59 18:59 Intake Total 760 Balance 760 - Medications Medications: Current Medications Diphenhydramine HCl (Benadryl) 25 mg PO [facility] Last Admin: 10/08/18 21:34 Dose: 25 mg Docusate Sodium (Colace) 100 mg PO DAILY [facility] Last Admin: 10/08/18 10:30 Dose: 100 mg Ferrous Sulfate (Feosol) 325 mg PO DAILY [facility] Last Admin: 10/08/18 10:30 Dose: 325 mg Ketorolac Tromethamine (Toradol) 10 mg PO Q6 PRN PRN Reason: Pain, moderate (4-7) Last Admin: 10/08/18 19:28 Dose: 10 mg Morphine Sulfate (Morphine) 2 mg IVP Q6 PRN PRN Reason: Pain, severe (8-10) Pantoprazole Sodium (Protonix Ec Tab) 40 mg PO DAILY [facility] Last Admin: 10/08/18 10:30 Dose: 40 mg - Labs Labs: 10/06/18 05:03 10/09/18 08:15 PT 15.3 SECONDS (9.7-12.2) H 10/09/18 08:15 INR 1.4 10/09/18 08:15 - Constitutional Appears: Well - Head Exam Head Exam: ATRAUMATIC, NORMAL INSPECTION, NORMOCEPHALIC - Eye Exam Eye Exam: EOMI, Normal appearance, PERRL Pupil Exam: NORMAL ACCOMODATION, PERRL - ENT Exam ENT Exam: Mucous Membranes Moist, Normal Exam - Neck Exam Neck Exam: Full ROM, Normal Inspection. absent: Lymphadenopathy - Respiratory Exam Respiratory Exam: Decreased Breath Sounds - Cardiovascular Exam Cardiovascular Exam: REGULAR RHYTHM, +S1, +S2 - GI/Abdominal Exam GI & Abdominal Exam: Soft, Diminished Bowel Sounds - Rectal Exam Rectal Exam: Deferred - Neurological Exam Neurological Exam: Oriented x3 Assessment and Plan (1) Abdominal pain Status: Acute (2) Abnormal LFTs (liver function tests) Status: Acute (3) Abdominal pain Status: Acute (4) Back muscle spasm Status: Acute (5) Chest discomfort Status: Acute (6) Chest pain, non-cardiac Status: Acute (7) Chest wall pain Status: Acute (8) Contusion of right thigh Status: Acute (9) Costochondritis Status: Acute (10) Gastritis Status: Acute (11) Gastritis Status: Acute (12) Injury of right lower arm Status: Acute (13) Laryngitis Status: Acute (14) Menorrhagia Status: Acute (15) Toothache Status: Acute (16) Trichomoniasis Status: Acute (17) UTI (urinary tract infection) Status: Acute (18) Upper respiratory infection Status: Acute - Assessment and Plan (Free Text) Plan: bendaryl colace feosol morphine protonix ec tab toradol medications reviewed labs reviewed vitals reviewed monitor forAbdominal point pain Tolerating the diet LFTs declining d/w pt about her reports liver wokr up in progress s/p gi Discharge the patient's tomorrow if okay with the GI and LFT continues to moderate complexity of care
[2018-10-09] MEDS: Pantoprazole 40 mg EC Tab PO SCH (10:16)
[2018-10-10 08:25] LABS: INR 1.2; PROTHROMBIN TIME 13.2 SECONDS (9.7-12.2)
[2018-10-10 08:29] VITALS: BP 125/75; PULSE 66; TEMP 98.3; O2SAT 98
[2018-10-10 08:42] LABS: ALB/GLOB RATIO 1.1 (1.0-2.1); ALBUMIN 3.8 g/dL (3.5-5.0); ALT/SGPT 922 U/L (9-52); AST/SGOT 666 U/L (14-36); BLOOD UREA NITROGEN 9 mg/dL (7-17); GFR NON-AFRICAN AMERICAN > 60
[2018-10-10] MEDS: Pantoprazole 40 mg EC Tab PO SCH (09:45)
--- NOTE | 2018-10-10 11:02 | CP.PCM.PN ---
<Peter Hui - Last Filed: 10/10/18 10:59> Subjective - Date & Time of Evaluation Date of Evaluation: 10/10/18 Time of Evaluation: 10:59 - Subjective Subjective: GI Fellow PGY4, progress note. No clinical changes this AM. Denies abdominal pain, vomiting, diarrhea, fevers. She is requesting to go home. 5pt ROS completed and negative except for above. Objective - Vital Signs/Intake and Output Vital Signs (last 24 hours): Temp Pulse Resp BP Pulse Ox 98.3 F 66 20 125/75 98 10/10/18 08:28 10/10/18 08:28 10/10/18 08:28 10/10/18 08:28 10/10/18 08:28 Intake and Output: 10/10/18 10/10/18 06:59 18:59 Intake Total 850 Balance 850 - Medications Medications: Current Medications Diphenhydramine HCl (Benadryl) 25 mg PO [facility] Last Admin: 10/09/18 22:59 Dose: Not Given Docusate Sodium (Colace) 100 mg PO DAILY [facility] Last Admin: 10/10/18 09:45 Dose: 100 mg Ferrous Sulfate (Feosol) 325 mg PO DAILY [facility] Last Admin: 10/10/18 09:45 Dose: 325 mg Ketorolac Tromethamine (Toradol) 10 mg PO Q6 PRN PRN Reason: Pain, moderate (4-7) Last Admin: 10/08/18 19:28 Dose: 10 mg Morphine Sulfate (Morphine) 2 mg IVP Q6 PRN PRN Reason: Pain, severe (8-10) Pantoprazole Sodium (Protonix Ec Tab) 40 mg PO DAILY [facility] Last Admin: 10/10/18 09:45 Dose: 40 mg - Labs Labs: 10/06/18 05:03 10/10/18 08:12 PT 13.2 SECONDS (9.7-12.2) H 10/10/18 08:12 INR 1.2 10/10/18 08:12 - Constitutional Appears: Non-toxic, No Acute Distress - Eye Exam Eye Exam: EOMI, Scleral icterus - ENT Exam ENT Exam: Mucous Membranes Moist, Normal Exam - Respiratory Exam Respiratory Exam: Clear to Ausculation Bilateral, NORMAL BREATHING PATTERN - Cardiovascular Exam Cardiovascular Exam: REGULAR RHYTHM, +S1, +S2 - GI/Abdominal Exam GI & Abdominal Exam: Soft, Normal Bowel Sounds. absent: Tenderness - Neurological Exam Neurological Exam: Alert, Awake, Oriented x3 - Psychiatric Exam Psychiatric exam: Normal Affect, Normal Mood - Skin Skin Exam: Normal Color, Warm Assessment and Plan - Assessment and Plan (Free Text) Assessment: #Acute hepatitis B - hep E Ag + #Abnormal liver tests #Chronic anemia, iron deficiency #Obesity #Tobacco dependence PLAN: -Elevated liver enzymes (hepatocellular pattern) due to acute hep B, and possible source from recent (1-6 months) sexual partners -Chronic anemia is iron deficiency with symptoms of pica. However, underlying thalassemia (elevated RBCs) cannot be ruled out. Recommend outpatient follow up. -U/S reviewed, unremarkable. CBD 3.7mm, no stones observed. negative for thrombus. -Hep E ag +... viral load and Hep D PENDING -She will likely need endoscopic evaluation for her anemia however this is not emergent. -Educated to avoid alcohol and sexual contact until Hep B resolves or risk of transmission to partner. -She will need close follow up as an outpatient to trend ALT, and ultimately test for seroconversion. If it does not resolve in 6 months, it will be considered chronic hepatitis B. This is the case in 5% of adults with acute hep B. -ALT, INR, Bili have been trending down significantly. She is A&Ox3. OK to discharge with close follow up. Case discussed with Dr. Wang, see attestation <Etienne Wang - Last Filed: 10/10/18 14:54> Objective - Vital Signs/Intake and Output Vital Signs (last 24 hours): Temp Pulse Resp BP Pulse Ox 98.3 F 66 20 125/75 98 10/10/18 08:28 10/10/18 08:28 10/10/18 08:28 10/10/18 08:28 10/10/18 08:28 Intake and Output: 10/10/18 10/10/18 06:59 18:59 Intake Total 850 Balance 850 - Labs Labs: 10/06/18 05:03 10/10/18 08:12 PT 13.2 SECONDS (9.7-12.2) H 10/10/18 08:12 INR 1.2 10/10/18 08:12 Attending/Attestation - Attestation I have personally seen and examined this patient.: Yes I have fully participated in the care of the patient.: Yes I have reviewed all pertinent clinical information, including history, physical exam and plan: Yes Notes (Text): 10/10/18 14:51 I have seen and examined patient with GI fellow. No acute events overnight, she is seen resting in bed comfortably. She denies abdominal pain, nausea, vomi ting, fever/chills. Tolerating PO diet without difficulty. Review of vitals from today are normal. Obesity Transaminitis Acute HBV - Diet as tolerated - LFTs trending down, continue to monitor - Follow up autoimmune serologies - Patient would benefit from additional outpatient follow up including close monitoring of LFTs and viral load to see if seroconversion occurs - No further planned intervention at this time, will sign off case. Counseling provided to patient regarding importance of safe sex practices, ETOH cessation. Please reconsult as necessary, thank you.
--- NOTE | 2018-10-10 13:32 | CP.PCM.PN ---
Subjective - Date & Time of Evaluation Date of Evaluation: 10/10/18 - Subjective Subjective: patient was examined today no nausea, no vomiting, no fever, no diarrhea, no sob Objective - Vital Signs/Intake and Output Vital Signs (last 24 hours): Temp Pulse Resp BP Pulse Ox 98.3 F 66 20 125/75 98 10/10/18 08:28 10/10/18 08:28 10/10/18 08:28 10/10/18 08:28 10/10/18 08:28 Intake and Output: 10/10/18 10/10/18 06:59 18:59 Intake Total 850 Balance 850 - Medications Medications: Current Medications Diphenhydramine HCl (Benadryl) 25 mg PO HS [facility] Last Admin: 10/09/18 22:59 Dose: Not Given Docusate Sodium (Colace) 100 mg PO DAILY [facility] Last Admin: 10/10/18 09:45 Dose: 100 mg Ferrous Sulfate (Feosol) 325 mg PO DAILY [facility] Last Admin: 10/10/18 09:45 Dose: 325 mg Ketorolac Tromethamine (Toradol) 10 mg PO Q6 PRN PRN Reason: Pain, moderate (4-7) Last Admin: 10/08/18 19:28 Dose: 10 mg Morphine Sulfate (Morphine) 2 mg IVP Q6 PRN PRN Reason: Pain, severe (8-10) Pantoprazole Sodium (Protonix Ec Tab) 40 mg PO DAILY [facility] Last Admin: 10/10/18 09:45 Dose: 40 mg - Labs Labs: 10/06/18 05:03 10/10/18 08:12 PT 13.2 SECONDS (9.7-12.2) H 10/10/18 08:12 INR 1.2 10/10/18 08:12 - Constitutional Appears: Well - Head Exam Head Exam: ATRAUMATIC, NORMAL INSPECTION, NORMOCEPHALIC - Eye Exam Eye Exam: EOMI, Normal appearance, PERRL Pupil Exam: NORMAL ACCOMODATION, PERRL - ENT Exam ENT Exam: Mucous Membranes Moist, Normal Exam - Neck Exam Neck Exam: Full ROM, Normal Inspection. absent: Lymphadenopathy - Respiratory Exam Respiratory Exam: Decreased Breath Sounds - Cardiovascular Exam Cardiovascular Exam: REGULAR RHYTHM, +S1, +S2 - GI/Abdominal Exam GI & Abdominal Exam: Soft, Diminished Bowel Sounds - Rectal Exam Rectal Exam: Deferred - Neurological Exam Neurological Exam: Oriented x3 Assessment and Plan (1) Abdominal pain Status: Acute (2) Abnormal LFTs (liver function tests) Status: Acute (3) Abdominal pain Status: Acute (4) Back muscle spasm Status: Acute (5) Chest discomfort Status: Acute (6) Chest pain, non-cardiac Status: Acute (7) Chest wall pain Status: Acute (8) Contusion of right thigh Status: Acute (9) Costochondritis Status: Acute (10) Gastritis Status: Acute (11) Gastritis Status: Acute (12) Injury of right lower arm Status: Acute (13) Laryngitis Status: Acute (14) Menorrhagia Status: Acute (15) Toothache Status: Acute (16) Trichomoniasis Status: Acute (17) UTI (urinary tract infection) Status: Acute (18) Upper respiratory infection Status: Acute - Assessment and Plan (Free Text) Plan: medications reviewed labs reviwed vitals reviewed
--- NOTE | 2018-10-10 17:15 | CP.PCM.PN ---
Objective - Vital Signs/Intake and Output Vital Signs (last 24 hours): Temp Pulse Resp BP Pulse Ox 98.3 F 66 20 125/75 98 10/10/18 08:28 10/10/18 08:28 10/10/18 08:28 10/10/18 08:28 10/10/18 08:28 Intake and Output: 10/10/18 10/10/18 06:59 18:59 Intake Total 850 Balance 850 - Labs Labs: 10/06/18 05:03 10/10/18 08:12 PT 13.2 SECONDS (9.7-12.2) H 10/10/18 08:12 INR 1.2 10/10/18 08:12 Assessment and Plan - Assessment and Plan (Free Text) Assessment: Patient admitted with upper ubdominal pain, elevated liver enzymes, diagnosed with acute
--- NOTE | 2018-10-10 21:35 | CP.PCM.DIS ---
Provider - Provider Date of Admission: 10/08/18 09:10 Attending physician: Zaheer New MD Consults: 10/06/18 10:18 Physician Consult Stat Comment: Consulting Provider: Etienne Wang Consulting Physician: Etienne Wang Reason for Consult: abnormal LFTs Time Spent in preparation of Discharge (in minutes): 20 Diagnosis - Discharge Diagnosis (1) Abdominal pain Status: Acute (2) Abnormal LFTs (liver function tests) Status: Acute (3) Abdominal pain Status: Acute (4) Back muscle spasm Status: Acute (5) Chest discomfort Status: Acute (6) Chest pain, non-cardiac Status: Acute (7) Chest wall pain Status: Acute (8) Contusion of right thigh Status: Acute (9) Costochondritis Status: Acute (10) Gastritis Status: Acute (11) Gastritis Status: Acute (12) Injury of right lower arm Status: Acute (13) Laryngitis Status: Acute (14) Menorrhagia Status: Acute (15) Toothache Status: Acute (16) Trichomoniasis Status: Acute (17) UTI (urinary tract infection) Status: Acute (18) Upper respiratory infection Status: Acute Hospital Course - Lab Results Lab Results: Most Recent Lab Values WBC 7.7 K/uL (4.8-10.8) 10/06/18 05:03 RBC 5.44 Mil/uL (3.80-5.20) H 10/06/18 05:03 Hgb 10.5 g/dL (11.0-16.0) L 10/06/18 05:03 Hct 34.0 % (34.0-47.0) 10/06/18 05:03 MCV 62.4 fL (81.0-99.0) L 10/06/18 05:03 MCH 19.4 pg (27.0-31.0) L 10/06/18 05:03 MCHC 31.0 g/dL (33.0-37.0) L 10/06/18 05:03 RDW 19.9 % (11.5-14.5) H 10/06/18 05:03 Plt Count 263 K/uL (130-400) 10/06/18 05:03 MPV 9.1 fL (7.2-11.7) 10/06/18 05:03 Neut % (Auto) 44.2 % (50.0-75.0) L 10/06/18 05:03 Lymph % (Auto) 35.5 % (20.0-40.0) 10/06/18 05:03 Mccormick % (Auto) 17.1 % (0.0-10.0) H 10/06/18 05:03 Eos % (Auto) 2.4 % (0.0-4.0) 10/06/18 05:03 Baso % (Auto) 0.8 % (0.0-2.0) 10/06/18 05:03 Neut # (Auto) 3.4 K/uL (1.8-7.0) 10/06/18 05:03 Lymph # (Auto) 2.7 K/uL (1.0-4.3) 10/06/18 05:03 Mccormick # (Auto) 1.3 K/uL (0.0-0.8) H 10/06/18 05:03 Eos # (Auto) 0.2 K/uL (0.0-0.7) 10/06/18 05:03 Baso # (Auto) 0.1 K/uL (0.0-0.2) 10/06/18 05:03 PT 13.2 SECONDS (9.7-12.2) H 10/10/18 08:12 INR 1.2 10/10/18 08:12 Sodium 137 mmol/L (132-148) 10/10/18 08:12 Potassium 3.9 mmol/L (3.6-5.2) 10/10/18 08:12 Chloride 103 mmol/L (98-107) 10/10/18 08:12 Carbon Dioxide 28 mmol/L (22-30) 10/10/18 08:12 Anion Gap 10 (10-20) 10/10/18 08:12 BUN 9 mg/dL (7-17) 10/10/18 08:12 Creatinine 0.8 mg/dL (0.7-1.2) 10/10/18 08:12 Est GFR ( Amer) > 60 10/10/18 08:12 Est GFR (Non-Af Amer) > 60 10/10/18 08:12 Random Glucose 141 mg/dL (65-105) H 10/10/18 08:12 Calcium 9.0 mg/dl (8.6-10.4) 10/10/18 08:12 Iron 17 ug/dL (37-170) L 10/06/18 11:42 TIBC 488 ug/dL (250-450) H 10/06/18 11:42 % Saturation 3 (20-55) L 10/06/18 11:42 Ferritin 12.8 ng/mL 10/06/18 11:42 Total Bilirubin 2.4 mg/dL (0.2-1.3) H 10/10/18 08:12 AST 666 U/L (14-36) H D 10/10/18 08:12 ALT 922 U/L (9-52) H D 10/10/18 08:12 Alkaline Phosphatase 162 U/L (38-126) H 10/10/18 08:12 Total Protein 7.3 g/dL (6.3-8.3) 10/10/18 08:12 Albumin 3.8 g/dL (3.5-5.0) 10/10/18 08:12 Globulin 3.5 gm/dL (2.2-3.9) 10/10/18 08:12 Albumin/Globulin Ratio 1.1 (1.0-2.1) 10/10/18 08:12 Lipase 198 U/L (23-300) 10/06/18 05:03 TSH 3rd Generation 2.31 mIU/L (0.46-4.68) 10/06/18 11:42 Urine Color Jessica (YELLOW) 10/06/18 04:27 Urine Clarity Hazy (Clear) 10/06/18 04:27 Urine pH 5.0 (5.0-8.0) 10/06/18 04:27 Ur Specific Joseph 1.021 (1.003-1.030) 10/06/18 04:27 Urine Protein Negative mg/dL (NEGATIVE) 10/06/18 04:27 Urine Glucose (UA) Normal mg/dL (Normal) 10/06/18 04:27 Urine Ketones Negative mg/dL (NEGATIVE) 10/06/18 04:27 Urine Blood Negative (NEGATIVE) 10/06/18 04:27 Urine Nitrate Negative (NEGATIVE) 10/06/18 04:27 Urine Bilirubin 2+ (NEGATIVE) H 10/06/18 04:27 Urine Urobilinogen 4.0 mg/dL (0.2-1.0) H 10/06/18 04:27 Ur Leukocyte Esterase Trace Dimitrios/uL (Negative) 10/06/18 04:27 Urine WBC (Auto) 10 /hpf (0-5) H 10/06/18 04:27 Urine RBC (Auto) 4 /hpf (0-3) H 10/06/18 04:27 Ur Squamous Epith Cells 5 /hpf (0-5) 10/06/18 04:27 Urine Opiates Screen Negative (NEGATIVE) 10/06/18 14:22 Urine Methadone Screen Negative (NEGATIVE) 10/06/18 14:22 Ur Barbiturates Screen Negative (NEGATIVE) 10/06/18 14:22 Ur Phencyclidine Scrn Negative (NEGATIVE) 10/06/18 14:22 Ur Amphetamines Screen Negative (NEGATIVE) 10/06/18 14:22 U Benzodiazepines Scrn Negative (NEGATIVE) 10/06/18 14:22 U Oth Cocaine Metabols Negative (NEGATIVE) 10/06/18 14:22 U Cannabinoids Screen Positive (NEGATIVE) H 10/06/18 14:22 Anti-Mitochondrial Ab Negative (Negative) 10/06/18 11:42 Anti-Smooth Muscle Ab Negative (Negative) 10/06/18 11:42 Hepatitis A IgM Ab Negative (NEGATIVE) 10/06/18 07:46 Hep Bs Antigen Reactive (NEGATIVE) 10/06/18 07:46 Hep Bs Ag Neutralizatn Confirmed positive H 10/06/18 07:46 Hep B Core IgM Ab Reactive (NEGATIVE) 10/06/18 07:46 Hepatitis Be Antigen Reactive (Non-reactive) H 10/07/18 07:52 Hepatitis C Antibody Negative (NEGATIVE) 10/06/18 07:46 Discharge Exam - Head Exam Head Exam: ATRAUMATIC, NORMAL INSPECTION, NORMOCEPHALIC Discharge Plan - Follow Up Plan Condition: STABLE Disposition: HOME/ ROUTINE Instructions: Acute Abdominal Pain (DC) Additional Instructions: Avoid tylenol, alcohol, increase po fluids follow up with GI as advised follow up with PMD in 1 week, follow up on the liver enzymes Referrals: Dallas New MD [Staff Provider] -
== END 2018-10-10 14:03 | disposition home or self-care (01) | DRG 442 ==
LOC: C.ER 03:02 → C.9E 10:21 → C.3T 14:04 → OBSVTOIN 10-08 09:10
PROVIDERS: ADMIT Internal Medicine Nephrology; ATTEND Internal Medicine Nephrology
DX: B16.9 Acute hepatitis B without delta-agent and without hepatic coma (principal); N39.0 Urinary tract infection, site not specified; Z68.41 Body mass index [BMI] 40.0-44.9, adult; B17.2 Acute hepatitis E; D50.9 Iron deficiency anemia, unspecified; A59.9 Trichomoniasis, unspecified; F17.210 Nicotine dependence, cigarettes, uncomplicated; J04.0 Acute laryngitis; I10 Essential (primary) hypertension; K08.89 Other specified disorders of teeth and supporting structures; K29.70 Gastritis, unspecified, without bleeding; M94.0 Chondrocostal junction syndrome [Tietze]; N92.0 Excessive and frequent menstruation with regular cycle; S70.11XA Contusion of right thigh, initial encounter; F50.89 Other specified eating disorder; E66.01 Morbid (severe) obesity due to excess calories; Z98.891 History of uterine scar from previous surgery; Z83.3 Family history of diabetes mellitus